=== PATIENT | male | born 1955 | race Caucasian/White ===

== ENCOUNTER 2018-06-12 00:41 | Outpatient (CLI) | payer MEDICAID, SELFPAY ==
--- NOTE | 2018-06-12 10:05 | DI.RAD_ITS ---
SYMPTOM/DIAGNOSIS: ASTHMA, J45.909 PA AND LATERAL CHEST: Comparison is made with 02/22/14. The heart is normal in size. The lungs are clear. The mediastinal structures and pleura appear intact. CONCLUSION: Normal chest.
== END 2018-06-12 01:01 ==
PROVIDERS: PCP Naturopath; Visit Provider Internal Medicine
DX: J45.909 Unspecified asthma, uncomplicated (principal)
CPT/HCPCS: 71046

== ENCOUNTER 2018-06-22 01:35 | Outpatient (CLI) | payer MEDICAID, SELFPAY ==
--- NOTE | 2018-06-22 10:52 | DI.CT_ITS ---
SYMPTOMS/DIAGNOSIS: CHRONIC OBSTRUCTIVE LUNG DISEASE, J44.[address]: The study was carried out without contrast enhancement. There is no evidence of a mass or infiltrate or pleural effusion. The heart is not enlarged. There is no pericardial effusion. Allowing for the absence of contrast material, there is no evidence of hilar or mediastinal adenopathy. There are minimal atherosclerotic changes involving the aorta without evidence of an aneurysm. Degenerative bony changes are most prominent in the upper and mid dorsal spine. SUMMARY: Essentially unremarkable noncontrast enhanced chest CT.
== END 2018-06-22 01:55 ==
PROVIDERS: PCP Naturopath; Visit Provider Internal Medicine
DX: J44.9 Chronic obstructive pulmonary disease, unspecified (principal)
CPT/HCPCS: 71250

== ENCOUNTER 2018-08-07 06:25 | Emergency (ER) | payer MEDICAID, SELFPAY ==
[2018-08-07] VITALS (71 sets, daily range): BP systolic 95–145; BP diastolic 34–92; PULSE 88–126; RESP 1–30; TEMP 36.7; O2SAT 87–100
--- NOTE | 2018-08-07 06:19 | W.ED.GENAD ---
Discharge Plan Disposition Patient Disposition: STILL A PATIENT Discharge Details Chief Complaint: SOB Reason For Visit: MOISES Primary Care Provider: Sabina Patel ED Provider: Randall Marte Home Meds and New Rx's Prescriptions: No Action albuterol sulfate 0.63 MG/3 ML solution for nebulization 0.63 inh Inhalation PRN PRNRF: 0 activated charcoal (bulk) 1 GM powder 1 gm PO DAILY RF: 0 Celery Seed 2 applic DAILY RF: 0 Trisalts 1 DAILY RF: 0 Urea Blend Capsules 2 cap PO BID RF: 0 Medical Decision Making This is a pleasant 63-year-old male who presents with a very atypical history. Patient had gasping respirations at home, he was given epinephrine by his . EMS got there and gave him Narcan and assisted with respirations, eventually the patient came around with a sudden gasp, and came back to a very normal mental status. He had some initial wheezes then, and received Solu-Medrol and duo nebs. Currently patient is asymptomatic and states that he feels fine, and he denies any headache fever chills neck pain or confusion. He is a and O x4. He does complain of pain in his right knee and left toe she states is consistent with his gout which she has been dealing with for the last 2 weeks. Physical exam demonstrates no other significant abnormalities but does demonstrate some mild to moderate tachycardia. Denies PE risk factors such as recent long car rides, immobilization, recent surgery, prior history of DVT or PE, family history of PE or DVT, morbid obesity, exogenous estrogen and smoking, hemoptysis, history of cancer. The patient did take 2 Percocets, as well as a pill of unknown contents from one his friends last night. The patient's symptoms are very odd and atypical. Seems that Narcan certainly did change his symptomatology initially. With the patient's current tachycardia we will evaluate for dehydration, versus PE. We will rehydrate, control his pain for his gout, evaluate for any other acute process. EKG 6: 47 Rate 121, MI 136, QTc 462, QRS 92, sinus tachycardia, no significant ST elevations or depressions, no T wave inversions, no significant Q waves 6:56 AM Patient was offered acetaminophen and Toradol for his gout pain, however he is refusing this at this time. 8:06 AM Patient's d-dimer is notably elevated, we did order a CT scan with contrast to evaluate for PE however the patient actively refused the IV contrast. Patient does not want any contrast of any sort as he states there have been thousands of lawsuits, and I do not want that poison in my body. I made it extremely clear to the patient that he will not be receiving a complete workup without this, and there is a very good chance we could be missing a life-threatening pathology with a lack of contrast. Patient states that he clearly understands that and states if I have to from a blood clot, that is fine. I feel that blood clot is less likely with lack of hypoxemia, or chest pain, however with his elevated d-dimer I feel that it is reasonable to rule out. Additionally while the patient was down for CT scan, he did refuse all x-rays of his extremities. Patient will not tell us why he is refused. Of note the patient's laboratory workup has partially returned and he demonstrates a notably elevated white count of 19, with a mild left shift, but no evidence of bandemia. Electrolytes are otherwise normal. Uric acid is slightly elevated, troponin and EKG are benign. Patient continues to demonstrate no signs or symptoms concerning for meningitis. Patient demonstrates good movement of cervical neck. There is no nuchal rigidity, no nuchal tenderness. Patient is able to flex the neck without any difficulty or significant pain. Negative Kernig's and Brudzinski sign. We are still awaiting CT results but I did not see any signs of significant pneumonia. He has no other associated pain in his abdomen. We will get a urinalysis to evaluate for signs of urinary tract infection. I did go and reevaluate the patient's tender areas for his gout including his left foot, right knee, and right elbow which does have a notable bursa. Although the areas are minimally swollen, there is no redness, no significant warmth, and no signs that at this time would clinically suggest a septic joint. The patient is afebrile here. Patient's clinical picture is very odd and atypical. May be a combination of na?ve opiate use with his unknown medication that he took from his friend, compounded by dehydration. Patient does look notably dehydrated when evaluating his lips and tongue. Infectious etiology is potential, however I do feel that it is clinically unlikely on my current clinical exam, especially in conjunction with no evidence of fever. We will add a lactate and an ESR and CRP. The patient is continuing to refuse any pain medications at this time. Patient will be signed out to my colleague Dr. Arora pending further laboratory workup, and imaging results. HPI General Date/Time Provider Initiated Documentation: 08/07/18 06:34. HPI Narrative: This is-year-old 64-year-old male with a past medical history of asthma, anxiety, and gout, who presents today for evaluation of respiratory distress. Per patient family and EMS the patient's significant other noticed in bed that he was having agonal breathing, she called 911, when EMS arrived the patient's saturations were in the 50s, prior to EMS arrival the patient significant other had given him an EpiPen is concerned that it was an allergic reaction. No significant change was noted after this. EMS did assist with ventilations, patient's saturations returned towards normal, he was given intranasal Narcan and roughly 10 minutes later with a vigorous inhaled he had a complete return of normal mental status, as well as normal respirations. EMS noticed some wheezes on exam after this, gave him Solu-Medrol and 2 breathing treatments. Oxygen saturations remained normal at this point. After this the patient stated that he felt fine, and had no additional complaints. He was brought to the ER for further evaluation. Patient does admit to 2 weeks of right knee pain and left foot pain. He states that it is clinically consistent with his chronic gout. He has been taking activated charcoal, and herbal supplements for improvement. Of note he did take 2 Percocets, and an unknown pill from 1 of his friends that was supposed to help with gout, last night. Currently the patient denies any fevers, chills, cough, chest pain, shortness of breath, numbness, tingling, weakness. He states that he feels fine. He denies taking any heroin, any IV or illicit drug use, or other complaints. He denies any recent surgery, or pertinent family history. He has no other complaints at this time. Related Data Home Medications Medication Instructions Recorded Confirmed albuterol sulfate 0.63 inh INHALATION PRN PRN 12/10/16 08/07/18 Celery Seed 2 applic DAILY 08/03/17 08/07/18 Trisalts 1 DAILY 08/03/17 Urea Blend Capsules 2 cap PO BID 08/03/17 08/07/18 activated charcoal (bulk) 1 gm PO DAILY 08/03/17 08/07/18 Allergies Allergy/AdvReac Type Severity Reaction Status Date / Time No Known Allergies Allergy Unverified 08/07/18 06:40 Review of Systems Review of Systems All systems reviewed & are unremarkable except as noted in HPI and below PFSH Social History Smoking/Tobacco Use Status: Never Social History Smoking/Tobacco Use Status: Never Exam Narrative Exam Narrative: 1.Const: Well-nourished, Well-developed, appearing stated age 2.Eyes: PERRL, no conjunctival injection, and symmetrical lids. 3.ENT: Atraumatic external nose and ears. Moist MM. Neck: Symmetric, trachea midline, No thyromegaly. Patient demonstrates good movement of cervical neck. There is no nuchal rigidity, no nuchal tenderness. Patient is able to flex the neck without any difficulty or significant pain. Negative Kernig's and Brudzinski sign. 4.CVS: +S1/S2, No murmurs or gallops. Peripheral pulses 2+ and equal in all extremities. Brisk capillary refill in all extremities. 5.RESP: Unlabored respiratory effort. Clear to auscultation bilaterally. No wheezes rales or rhonchi 6.GI: Soft, Nontender/Nondistended, No hepatosplenomegaly. No guarding or rebound. 7.MSK: Normocephalic/Atraumatic, Extremities w/o deformity. No cyanosis or clubbing, Normal movement of all extremities. Mild tenderness in the patient's right knee, minimal swelling, no erythema or redness. No significant crepitus or signs of tophaceous gout. Mild tenderness by the patient's left great toe, minimal tenderness, no erythema, or significant swelling. Dorsalis pedis and posterior tibial pulses +2 bilaterally. Radial pulses +2 bilaterally. 8.Skin: Warm, Dry. No rashes or lesions. 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 Sensation grossly intact, no focal neurologic deficits. All 6 cardinal planes of vision are fully intact. No evidence of rotatory or vertical nystagmus. The patient demonstrated a normal kkjqnq-wluo-ndcqle, good dexterity. There was no evidence of dysdiadochokinesia. Patient was able to ambulate without difficulty. There was no wide-based gait. Romberg, and skwo-qn-olph are both normal on testing. Sensation was intact bilaterally as well as muscle strength bilaterally for all extremities. Patient was able to verbalize butter cup with no slurring, or miss pronunciation. 10.Psych: (AAO) x3. Appropriate mood and affect
--- NOTE | 2018-08-07 06:36 | DI.CT_ITS ---
SYMPTOMS/DIAGNOSIS: ALTERED MENTAL STATUS, RESPIRATORY DISTRESS, TACHY CT BRAIN: A noncontrast cranial CT was performed. No priors for comparison. The ventricular system is normal in appearance. There is no evidence of an intracranial mass lesion. There is no evidence of a subdural or epidural hematoma. No focal areas of decreased attenuation are seen. IMPRESSION: Normal noncontrast Cranial CT. CT CHEST: Noncontrast CT scan of the chest was performed. Lack of IV contrast limits evaluation of the vascular structures. The thoracic aorta is of normal caliber. The heart size is within normal limits. No significant pericardial effusion is seen. There are mild coronary artery calcifications. No significant thoracic adenopathy, pleural effusion or pneumothorax is identified. No infiltrates are seen. The tracheobronchial tree is unremarkable. The upper abdominal images are unremarkable. Degenerative changes are seen in the spine. IMPRESSION: No acute abnormality on this noncontrast CT scan of the chest.
[2018-08-07 06:53] LABS: Absolute Basophil Count 0.04 k/cumm (0.0-0.2); Absolute Eosinophil Count 0.23 k/cumm (0.0-0.7); Absolute Lymphocyte Count 1.61 k/cumm (1.2-3.4); Absolute Monocyte Count 0.94 k/cumm (0.11-0.7); Absolute Neutrophil Count 16.66 k/cumm (1.2-6.7); Basophils % 0.2; Eosinophils % 1.2; HGB 12.6 g/dL (13.5-17.5); Immature Grans % 0.5; Lymphocytes % 8.2; Mean Corp. HGB Concentration 32.3 g/dL (32.0-36.0); Mean Corpuscular Hemoglobin 31.3 pg (27.0-33.0); Mean Corpuscular Volume 96.8 fL (80-95); Mean Platelet Volume 9.1 fL (8.0-11.0); Monocytes % 4.8; Neutrophils % 85.1; Platelet Count 683 x1000/uL (130-400); RBC 4.03 m/cumm (4.50-6.00); RBC Distribution Width 12.4 % (11.8-14.1); White Blood Cell Count 19.58 k/cumm (4.4-10.8)
[2018-08-07] MEDS: Normal Saline 1,000 ML 1000 ML IV ×3 (06:55→11:20)
[2018-08-07 07:15] LABS: ALT 23 U/L (12-78); AST 20 U/L (15-37); Albumin 2.7 g/dL (3.4-5.0); Alkaline Phosphatase 55 U/L (46-116); Anion Gap 12.6 mmol/L (3-11); BUN 14 mg/dL (7-18); Bilirubin, Total 0.3 mg/dL (0.2-1.0); CO2 26.4 mmol/L (21.0-32.0); CREATININE 1.19 mg/dL (0.70-1.30); Calcium 8.8 mg/dL (8.5-10.1); Chloride 98 mmol/L (98-107); Glucose 219 mg/dL (70-100); Potassium 4.1 mmol/L (3.5-5.1); Sodium 137 mmol/L (136-145); Total Protein 7.3 g/dL (6.4-8.2); Uric Acid 9.9 mg/dL (3.5-7.2)
[2018-08-07 07:17] LABS: Troponin I < 0.02 ng/mL (0.00-0.06)
[2018-08-07 07:23] LABS: D-Dimer 6257 ng/mlFEU (<500)
--- NOTE | 2018-08-07 07:38 | NUR.NOTE ---
MD Marte at the bedside as patient is refusing IV contrast, MD Marte was very clear with patient regarding his elevated DDimer and the risks associated with not diagnosing and treating a PE including .
--- NOTE | 2018-08-07 07:41 | NUR.NOTE ---
Pt. is currently in CT scan, agreeable to non-con testing.
--- NOTE | 2018-08-07 07:54 | NUR.NOTE ---
MD Marte is at the bedside, updating patient on elevated WBC, pt. placed on surveillance monitor.
--- NOTE | 2018-08-07 08:05 | DI.VRAD_ITS ---
EXAM: CT Head Without Intravenous Contrast EXAM DATE/TIME: 08/07/2018 6:40 AM CLINICAL HISTORY: 63 years old, male; Pain; Additional info: Altered mental status TECHNIQUE: Axial computed tomography images of the head/brain without intravenous contrast. Coronal and sagittal reformatted images were created and reviewed. COMPARISON: No relevant prior studies available. FINDINGS: There is no intracranial hemorrhage. There is no mass effect or midline shift. The ventricles and sulci are appropriate in size and configuration for age. Normal heller white differentiation. The calvarium is intact. IMPRESSION: No acute intracranial findings. Dictated and Authenticated by: Daquan Bradley MD. Ordering:RAMONA OCAMPO MD
--- NOTE | 2018-08-07 08:09 | DI.VRAD_ITS ---
EXAM: CT Chest Without Contrast EXAM DATE/TIME: 08/07/2018 7:25 AM CLINICAL HISTORY: 63 years old, male; Pain; Other: Altered menal status; Additional info: Altered mental status TECHNIQUE: Axial computed tomography images of the chest without intravenous contrast. Coronal and sagittal reformatted images were created and reviewed. COMPARISON: CT CHEST WO 06/22/2018 10:39 AM FINDINGS: No airspace consolidation, pleural effusion or pneumothorax. The thoracic aorta is normal in caliber. The visualized abdominal structures are unremarkable. No fracture. IMPRESSION: No acute findings. Dictated and Authenticated by: Daquan Bradley MD. Ordering:RAMONA OCAMPO MD
[2018-08-07 08:13] LABS: Bilirubin Negative (Negative); Blood Negative (Negative); Clarity Clear; Glucose Negative (Negative); Ketones 15 mg/dL (Negative); Leukocyte Esterase Negative (Negative); Nitrite Negative (Negative); Urobilinogen 0.2 EU/dL (Up TO 0.2)
[2018-08-07 08:23] LABS: Bacteria Rare HPF (Negative); Crystals Negative HPF (Negative); Epithelial Cells Rare HPF (Negative); Mucus Negative (Negative); RBC Negative (0-2); WBC 0-2 HPF (0-5)
[2018-08-07 08:24] LABS: C & S Indicated? No; Casts 0-2 Fine Granular LPF (Negative)
--- NOTE | 2018-08-07 08:24 | NUR.NOTE ---
pt. states knee pain is significant better, placed on 2L NC, pt. desats to low 80s when he sleeps. pt. admits to sleep apnea.
[2018-08-07 08:31] LABS: C-Reactive Protein 9.76 mg/dL (0.0-0.3)
[2018-08-07 09:02] LABS: ESR 103 MM/HR (1-20)
[2018-08-07 09:10] LABS: Lactate-non-spesis 1.1 mmol/L (0.6-1.4)
--- NOTE | 2018-08-07 10:12 | NUR.NOTE ---
Pt. is resting on and off, easily aroused, continues to state that his knee feels better, tachycardia improved after 2nd L IVF to high 80s from low 100s. VSS otherwise. Call blackburn in reach, will monitor.
[2018-08-07 10:45] LABS: Troponin I 0.02 ng/mL (0.00-0.06)
--- NOTE | 2018-08-07 11:01 | NUR.NOTE ---
MD Arora is at the bedside.
--- NOTE | 2018-08-07 11:43 | NUR.NOTE ---
Phlebotomy is at the bedside drawing cultures.
== END 2018-08-07 14:00 | disposition left against medical advice (07) ==
PROVIDERS: Student in an Organized Health Care Education/Training Program; Emergency Provider Student in an Organized Health Care Education/Training Program; PCP Naturopath
DX: R09.2 Respiratory arrest (principal); R00.0 Tachycardia, unspecified; D72.829 Elevated white blood cell count, unspecified; M70.32 Other bursitis of elbow, left elbow; M25.50 Pain in unspecified joint; G89.29 Other chronic pain; M10.9 Gout, unspecified; R79.1 Abnormal coagulation profile; Z53.29 Procedure and treatment not carried out because of patient's decision for other reasons
CPT/HCPCS: 36410; 36415; 71250; 80053; 85652; 87040; 93005; 96361; 99285; 70450; 81003; 81015; 83605; 84484; 84550; 85025; 85379; 86140; 93010; 99284; J1885

== ENCOUNTER 2018-10-06 10:22 | Emergency (ER) | payer MEDICAID, SELFPAY ==
[2018-10-06 10:27] VITALS: BP 164/95; PULSE 96; RESP 18; TEMP 36.8; O2SAT 95
--- NOTE | 2018-10-06 10:37 | ED.GENADUL_ITS ---
Discharge Plan Disposition Patient Disposition: HOME Condition: Improving Discharge Details Chief Complaint: RespSymp Clinical Impression: Acute bronchitis with bronchospasm Primary Care Provider: Sabina Patel ED Provider: Dmitry Funes Home Meds and New Rx's Prescriptions: New prednisone 20 mg tablet 60 mg PO DAILY 5 Days Qty: 15 RF: 0 azithromycin 250 mg tablet See Rx Instructions .ROUTE .COMPLEX Qty: 6 RF: 0 No Action albuterol sulfate 0.63 MG/3 ML solution for nebulization 0.63 inh Inhalation PRN PRNRF: 0 activated charcoal (bulk) 1 GM powder 1 gm PO DAILY RF: 0 Celery Seed 2 applic DAILY RF: 0 Trisalts 1 DAILY RF: 0 Urea Blend Capsules 2 cap PO BID RF: 0 prednisone 20 mg Tablet 60 mg PO ONCE RF: 0 Discharge Instructions Instructions: Acute Bronchitis (ED) Additional Instructions: Take medications as prescribed. Follow-up with regular doctor if not improving in 5 days time. Return to the emergency department for any acute concerns Medical Decision Making 63-year-old male with a history of reactive airway disease presents from home with 9-10 days of cough, congestion, production of sputum and wheezing that is been minimally improved with his home inhaler. He is previously been prescribed prednisone and took 60 mg by mouth at 3:00 this morning. He arrives with a temp of 36.8, pulse 96, blood pressure 164/95, 95% sat on room air and speaking in full sentences. Diagnosis includes COPD exacerbation, bronchitis, pneumonia, must exclude underlying fluid overload. Patient given inhaled DuoNeb, referred for chest x-ray, EKG, laboratory testing. Patient's diagnostic studies are reassuring. His white blood cell count of 10, discrete anion gap of 12, otherwise reassuring CBC and chemistries with a negative troponin and normal BNP. Chest x-ray without focal infiltrate. Consistent with bronchitis and COPD exacerbation. Will treat with abx, steroid burst. Lab Data Lab results reviewed: Yes I reviewed the patient's lab results. Laboratory Results - last 24 hr 10/06/18 10/06/18 10:54 10:54 WBC 10.53 RBC 4.90 Hgb 15.2 Hct 46.6 MCV 95.1 H MCH 31.0 MCHC 32.6 RDW 15.5 H Plt Count 295 MPV 9.7 Immature Gran % 0.4 Neutrophils % 88.6 Lymphocytes % 6.5 Monocytes % 4.3 Eosinophils % 0.0 Basophils % 0.2 Absolute Neutrophils 9.34 H Absolute Lymphocytes 0.68 L Absolute Monocytes 0.45 Absolute Eosinophils 0.00 Absolute Basophils 0.02 Sodium 140 Potassium 4.3 Chloride 102 Carbon Dioxide 25.7 Anion Gap 12.3 H BUN 11 Creatinine 1.11 Estimated GFR/1.73 m2 >= 60.00 Glucose 157 H Calcium 9.2 Magnesium 2.2 Total Bilirubin 0.5 AST 16 ALT 30 Alkaline Phosphatase 67 Troponin I < 0.02 NT-Pro-B Natriuret Pep 72 Total Protein 7.9 Albumin 3.8 ECG Data Attestation: I personally reviewed and interpreted this ECG (s) as follows: Interpretation: Normal sinus rhythm, the rate is 79, the QRS is narrow, there is no ST segment elevation HPI General Mode of arrival: ambulatory . Date/Time Provider Initiated Documentation: 10/06/18 10:24 . Limitations to Documentation: no limitations . Information obtained by: patient and family . History of Present Illness 63 year old M presents to the emergency department with the chief complaint of Cough, congestion, shortness of breath over 9 days time, described as moderate, Quality is described as aching, Patient started experiencing this day(s) and it has been constant. No relieving factors improve symptom(s), No exacerbating factors reported . Patient notes cough and shortness of breath. Patient did receive the following treatments prior to arrival, other (Prednisone 60 mg at 0300 and breathing txs) Related Data Home Medications Medication Instructions Recorded Confirmed albuterol sulfate 0.63 inh INHALATION PRN PRN 12/10/16 10/06/18 Celery Seed 2 applic DAILY 08/03/17 08/07/18 Trisalts 1 DAILY 08/03/17 Urea Blend Capsules 2 cap PO BID 08/03/17 08/07/18 activated charcoal (bulk) 1 gm PO DAILY 08/03/17 08/07/18 azithromycin See Rx Instructions .ROUTE 10/06/18 .COMPLEX #6 tab prednisone 60 mg PO DAILY 5 Days #15 tab 10/06/18 prednisone 60 mg PO ONCE 10/06/18 10/06/18 Previous Rx's Medication Instructions Recorded azithromycin See Rx Instructions .ROUTE 10/06/18 .COMPLEX #6 tab prednisone 60 mg PO DAILY 5 Days #15 tab 10/06/18 Allergies Allergy/AdvReac Type Severity Reaction Status Date / Time No Known Allergies Allergy Unverified 10/06/18 10:33 General Stated Complaint: RespSymp ALLY: 3 Review of Systems Review of Systems 8 systems reviewed and otherwise neg PFSH Social History Smoking/Tobacco Use Status: Never Exam Narrative Exam Narrative: GEN: awake, alert, oriented 3. Pleasant, well groomed, interactive. HEAD: Normocephalic, atraumatic ENT: Mucous membranes moist, oropharynx unremarkable, External ear exam unremarkable EYES: PERRL, EOMI NECK: Full ROM, no MARCUS, no menigismus CHEST/RESP: Nontender, bilateral slight inspiratory and end expiratory wheeze present CARDIOVASCULAR: RRR, no murmur, rub raffaele. 2+ Rad pulse bilateral ABDOMEN: Soft, nontender, no mass. +Bowel sounds EXT: Full ROM, no edema, no rash Neuro: Grossly normal neurologic exam, conversant, interactive. Psych: Speech fluent, thoughts congruent, affect normal Course Vital Signs Temperature 36.8 C 10/06/18 10:27 Pulse 96 H 10/06/18 10:27 Respiratory Rate 18 10/06/18 10:27 Blood Pressure 164/95 H 10/06/18 10:27 Pulse Oximetry 95 10/06/18 10:27 Temperature 36.8 C 10/06/18 10:27 Temperature Source Temporal Artery Scan 10/06/18 10:27 Pulse 96 H 10/06/18 10:27 Respiratory Rate 18 10/06/18 10:27 Respiratory Effort 10/06/18 10:32 Respiratory Depth Normal 10/06/18 10:32 Blood Pressure 164/95 H 10/06/18 10:27 Blood Pressure Position Sitting 10/06/18 10:27 Pulse Oximetry 95 10/06/18 10:27 Pain Level 0 10/06/18 10:27
[2018-10-06 10:44] VITALS: RESP 4
[2018-10-06] MEDS: Albuterol/Ipratropium 3 ML UPD VIAL UPD (10:44)
[2018-10-06 11:03] LABS: Abs Immature Grans 0.04 k/cumm (0.0-0.09); Absolute Basophil Count 0.02 k/cumm (0.0-0.2); Absolute Lymphocyte Count 0.68 k/cumm (1.2-3.4); Absolute Monocyte Count 0.45 k/cumm (0.11-0.7); Absolute Neutrophil Count 9.34 k/cumm (1.2-6.7); Basophils % 0.2; HCT 46.6 % (40.0-50.0); HGB 15.2 g/dL (13.5-17.5); Immature Grans % 0.4; Lymphocytes % 6.5; Mean Corp. HGB Concentration 32.6 g/dL (32.0-36.0); Mean Corpuscular Volume 95.1 fL (80-95); Mean Platelet Volume 9.7 fL (8.0-11.0); Monocytes % 4.3; Neutrophils % 88.6; Platelet Count 295 x1000/uL (130-400); RBC Distribution Width 15.5 % (11.8-14.1); White Blood Cell Count 10.53 k/cumm (4.4-10.8)
--- NOTE | 2018-10-06 11:18 | DI.RAD_ITS ---
SYMPTOM/DIAGNOSIS: COUGH PA AND LATERAL CHEST: 10/06/18 The heart is not enlarged. The lungs are generally clear. There is slight thickening of what appears to be the major fissure on the right. No pleural effusion seen in posterior sulcus. CONCLUSION: Slight prominence of inter-lobar fissure on the right which is of uncertain significance. No gross pleural effusion or consolidation.
[2018-10-06 11:26] LABS: ALT 30 U/L (12-78); AST 16 U/L (15-37); Albumin 3.8 g/dL (3.4-5.0); Alkaline Phosphatase 67 U/L (46-116); Anion Gap 12.3 mmol/L (3-11); BUN 11 mg/dL (7-18); Bilirubin, Total 0.5 mg/dL (0.2-1.0); CO2 25.7 mmol/L (21.0-32.0); CREATININE 1.11 mg/dL (0.70-1.30); Calcium 9.2 mg/dL (8.5-10.1); Chloride 102 mmol/L (98-107); Glucose 157 mg/dL (70-100); Magnesium 2.2 mg/dL (1.8-2.4); NT-proBNP 72 pg/mL; Potassium 4.3 mmol/L (3.5-5.1); Sodium 140 mmol/L (136-145); Total Protein 7.9 g/dL (6.4-8.2)
[2018-10-06 11:31] LABS: Troponin I < 0.02 ng/mL (0.00-0.06)
[2018-10-06 12:17] VITALS: PULSE 74; RESP 18; TEMP 36.6; O2SAT 94
== END 2018-10-06 12:17 | disposition home or self-care (01) ==
PROVIDERS: Emergency Provider Emergency Medicine; PCP Naturopath
DX: J44.0 Chronic obstructive pulmonary disease with (acute) lower respiratory infection (principal); J20.9 Acute bronchitis, unspecified; J44.1 Chronic obstructive pulmonary disease with (acute) exacerbation
CPT/HCPCS: 36415; 80053; 93005; 94640; 99284; 71046; 83735; 83880; 84484; 85025; 93010; J7620

== ENCOUNTER 2018-10-31 03:18 | Emergency (ER) | payer MEDICAID, SELFPAY ==
[2018-10-31 03:21] VITALS: BP 144/73; PULSE 106; RESP 20; TEMP 36.4; O2SAT 98
[2018-10-31 03:28] VITALS: RESP 24
--- NOTE | 2018-10-31 03:44 | W.ED.GENAD ---
Discharge Plan Disposition Patient Disposition: HOME Condition: Good Discharge Details Chief Complaint: SOB Clinical Impression: Cough, Asthma exacerbation Primary Care Provider: Sabina Patel ED Provider: Randall Marte Home Meds and New Rx's Prescriptions: New prednisone 50 MG tablet 50 mg PO DAILY Qty: 5 RF: 0 amoxicillin-pot clavulanate [Augmentin] 875-125 mg tablet 1 tab PO BID Qty: 14 RF: 0 No Action albuterol sulfate 0.63 MG/3 ML solution for nebulization 0.63 inh Inhalation PRN PRNRF: 0 activated charcoal (bulk) 1 GM powder 1 gm PO DAILY PRNRF: 0 Celery Seed 2 applic DAILY RF: 0 Trisalts 1 DAILY RF: 0 Urea Blend Capsules 2 cap PO BID RF: 0 prednisone 20 mg Tablet 60 mg PO ONCE RF: 0 albuterol sulfate [ProAir HFA] 90 mcg/actuation Hfa Aerosol Inhaler 2 puff Inhalation PRNRF: 0 Discharge Instructions Instructions: Asthma (ED), Acute Cough (ED) Additional Instructions: Please take the prednisone as directed. Do not have any pertinent improvement of your symptoms in the next 48 hours please take the antibiotic. If you notice any worsening of your symptoms, or any new symptoms such as vomiting, diarrhea, fever, chills, shortness of breath, chest pain, numbness, weakness, or fainting , please return immediately to the emergency department for reevaluation. Please follow up with your primary care provider as soon as possible for reassessment and reevaluation. As always, it was a pleasure participating in your medical care today. Referrals: Sabina Patel [Primary Care Provider] - Medical Decision Making This is a 63-year-old male with past medical history of asthma, gout and anxiety who presents today for evaluation of cough and difficulty breathing. It started roughly 30-40 minutes ago. He awoke from sleep feeling like he had aspirated some acid, and began coughing. He took a breathing and 30 mg of his home prednisone that he had saved from a previous visit. He had notable improvement of his symptoms after this. Although the patient's symptoms were improving he taken to the ER for further evaluation. He is states that this is happened multiple times in the past, he just needs some breathing treatments. The patient is currently refusing any x-ray imaging, or additional lab work stating told again to show what it showed last time. I did discuss with the patient the risks and benefits of holding off on labs or imaging, and he understands these risks. Of note on review of my prior visit with the patient he was also very resistant to imaging and laboratory workup at that time as well. Respecting the patient's wishes with him being fully aware and understanding of the risks we will proceed only with a EKG, and breathing treatments at this time. We will give an additional 30 mg of prednisone, and reassess. With reassuring vital signs with no evidence of hypoxemia, tachypnea, or respiratory distress I see no signs of a clinically life-threatening emergency at this time. Differential includes mild asthma exacerbation more likely, questionable aspiration pneumonitis less likely. The patient is able to speak clearly. There is no demonstration of any slurring of speech. There is evidence of clear decision making capacity. Patient is able to ambulate well without any difficulty. There are no signs of ataxia or stumbling motions. 4:30 AM Patient's EKG shows no concerning ST elevations or other significant abnormalities. After breathing treatments reevaluation of his lungs demonstrates a notable improvement in his wheezes, and his wheezes have now completely resolved. The patient still shows no signs of respiratory distress, significant tachypnea or hypoxemia. They do feel that his symptoms are more likely from a mild asthma exacerbation, however since he is refusing x-ray I am uncertain if there is an aspiration component, although I feel notable aspiration is unlikely. May be a small degree of aspiration pneumonitis. No evidence of hypoxemia I see no indication for hospital admission. With his notable improvement the patient does feel ready to go home, and I do feel that this is reasonable. We continue to offer her laboratory and imaging however this was unwanted at this time. We will recommend the patient continue his breathing treatments at home, will give a prescription for steroids for his asthma, and a prescription for Augmentin for unlikely aspiration pneumonia. Recommend that he hold off for the next 24-48 hours and if he is not improving in his symptomatology that he begins taking the antibiotic. I have extensively reviewed the treatment plan and discharge instructions with the patient and their family. I have addressed all patient concerns at this time. The patient and family was made aware of what symptoms to monitor for that would warrant a return to the emergency department. Discussed the plan with the patient and family, they demonstrate verbal understanding and agreement with our assessment and plan at this time. 3: 47 Rate 99, MI 142, QTc 449, QRS 94, sinus rhythm, no significant ST elevations or depressions, no Q waves except for a questionable Q waves in V1 and V2. Inverted T wave in V1. Previous EKG from 10/06/18 demonstrates consistent finding HPI General Date/Time Provider Initiated Documentation: 10/31/18 03:33. HPI Narrative: This is a 63-year-old male with past medical history of asthma, anxiety, and gout, who presents today for evaluation of difficulty breathing. Patient states that he woke up this evening and felt like he may have choked on some acid reflux. After this he was notably short of breath, felt like his lungs were tight. He has been coughing ever since, his cough is been productive with clear and yellow sputum. He denies any vomiting, chest pain, chest tightness, arm pain, neck pain or shoulder pain. He denies any abdominal pain or back pain. He did take 30 mg of prednisone prior to coming in, and also took a home breathing treatment. He had notable improvement with both of these. Denies PE risk factors such as recent long car rides, immobilization, recent surgery, prior history of DVT or PE, family history of PE or DVT, morbid obesity, exogenous estrogen and smoking, hemoptysis, history of cancer. Patient denies any other complaints at this time. Of note he was treated for bronchitis earlier this month. Patient denies any symptoms of fever, chills. He has no other complaints at this time. Related Data Home Medications Medication Instructions Recorded Confirmed albuterol sulfate 0.63 inh INHALATION PRN PRN 12/10/16 10/06/18 Celery Seed 2 applic DAILY 08/03/17 08/07/18 Trisalts 1 DAILY 08/03/17 Urea Blend Capsules 2 cap PO BID 08/03/17 08/07/18 activated charcoal (bulk) 1 gm PO DAILY PRN 08/03/17 08/07/18 prednisone 60 mg PO ONCE 10/06/18 10/06/18 albuterol sulfate [ProAir HFA] 2 puff INHALATION PRN 10/31/18 amoxicillin-pot clavulanate 1 tab PO BID #14 tab 10/31/18 [Augmentin] prednisone 50 mg PO DAILY #5 tab 10/31/18 Previous Rx's Medication Instructions Recorded amoxicillin-pot clavulanate 1 tab PO BID #14 tab 10/31/18 [Augmentin] prednisone 50 mg PO DAILY #5 tab 10/31/18 Allergies Allergy/AdvReac Type Severity Reaction Status Date / Time No Known Allergies Allergy Unverified 10/31/18 03:26 General Stated Complaint: SOB ALLY: 3 Review of Systems Review of Systems All systems reviewed & are unremarkable except as noted in HPI and below PFSH Social History Smoking and Tabacco status: Never Exam Narrative Exam Narrative: 1.Const: Well-nourished, Well-developed, appearing stated age 2.Eyes: PERRL, no conjunctival injection, and symmetrical lids. 3.ENT: Atraumatic external nose and ears. Moist MM. Neck: Symmetric, trachea midline, No thyromegaly. 4.CVS: +S1/S2, No murmurs or gallops. Peripheral pulses 2+ and equal in all extremities. Brisk capillary refill in all extremities. Radial pulses +2 bilaterally. 5.RESP: Unlabored respiratory effort. Notable wheezes bilaterally. No significant crackles. No significant rhonchi 6.GI: Soft, Nontender/Nondistended, No hepatosplenomegaly. No guarding or rebound. 7.MSK: Normocephalic/Atraumatic, Extremities w/o deformity or ttp No cyanosis or clubbing, Normal movement of all extremities 8.Skin: Warm, Dry. No rashes or lesions. 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 Sensation grossly intact, no focal neurologic deficits. 10.Psych: (AAO) x3. Appropriate mood and affect Course Vital Signs Temperature 36.4 C 10/31/18 03:21 Pulse 106 H 10/31/18 03:21 Respiratory Rate 20 10/31/18 03:21 Blood Pressure 144/73 H 10/31/18 03:21 Pulse Oximetry 98 10/31/18 03:21 Temperature 36.4 C 10/31/18 03:21 Temperature Source Oral 10/31/18 03:21 Pulse 106 H 10/31/18 03:21 Respiratory Rate 24 10/31/18 03:28 Respiratory Effort 10/31/18 03:28 Blood Pressure 144/73 H 10/31/18 03:21 Pulse Oximetry 98 10/31/18 03:21 Pain Level 10 10/31/18 03:21
[2018-10-31] MEDS: predniSONE 20 MG TAB (03:48)
[2018-10-31] MEDS: predniSONE 10 MG TAB (03:48)
[2018-10-31 03:49] VITALS: RESP 4
[2018-10-31] MEDS: Albuterol/Ipratropium 3 ML UPD VIAL (03:49)
[2018-10-31 04:12] VITALS: RESP 4
[2018-10-31] MEDS: Albuterol/Ipratropium 3 ML UPD VIAL 6 ML UPD (04:12)
[2018-10-31 04:54] VITALS: BP 139/85; PULSE 112; RESP 18; O2SAT 96
== END 2018-10-31 04:59 | disposition home or self-care (01) ==
LOC: ER 05:00
PROVIDERS: Emergency Provider Student in an Organized Health Care Education/Training Program; PCP Naturopath
DX: R05 Cough (principal); J45.901 Unspecified asthma with (acute) exacerbation
CPT/HCPCS: 93005; 94640; 99284; 93010; J7512; J7620

== ENCOUNTER 2018-12-12 10:14 | Outpatient (CLI) | payer MEDICAID, SELFPAY ==
[2018-12-22 10:22] LABS: C4a Level by RIA 1186 ng/mL (0-2830)
== END 2018-12-12 10:34 ==
PROVIDERS: PCP Naturopath; Visit Provider Naturopath
DX: Z77.120 Contact with and (suspected) exposure to mold (toxic) (principal)
CPT/HCPCS: 36415; 86160

== ENCOUNTER 2019-09-12 12:24 | Emergency (ER) | payer MEDICAID, SELFPAY ==
[2019-09-12] VITALS (22 sets, daily range): BP systolic 122–143; BP diastolic 68–84; PULSE 92–120; RESP 10–20; TEMP 37.3; O2SAT 94–98
--- NOTE | 2019-09-12 12:45 | ED.GENADUL_ITS ---
Discharge Plan Disposition Patient Disposition: HOME Condition: Improving Discharge Details Chief Complaint: Nk/Back Pain Clinical Impression: Spasm of muscle of lower back Primary Care Provider: Sabina Patel ED Provider: Dmitry Funes Home Meds and New Rx's Prescriptions: New methocarbamol 750 mg tablet 750 mg PO TID PRN (Reason: Pain and spasm) Qty: 20 RF: 0 oxycodone-acetaminophen [Percocet] 5-325 mg tablet 1 tab PO TID PRN (Reason: pain) Qty: 4 RF: 0 Continued albuterol sulfate 0.63 MG/3 ML solution for nebulization 0.63 inh Inhalation PRN PRNRF: 0 activated charcoal (bulk) 1 GM powder 1 gm PO DAILY PRNRF: 0 Celery Seed 2 applic DAILY RF: 0 Trisalts 1 DAILY RF: 0 Urea Blend Capsules 2 cap PO BID RF: 0 prednisone 20 mg Tablet 60 mg PO ONCE RF: 0 albuterol sulfate [ProAir HFA] 90 mcg/actuation Hfa Aerosol Inhaler 2 puff Inhalation PRNRF: 0 prednisone 50 MG tablet 50 mg PO DAILY Qty: 5 RF: 0 amoxicillin-pot clavulanate [Augmentin] 875-125 mg tablet 1 tab PO BID Qty: 14 RF: 0 Discharge Instructions Instructions: Muscle Spasm (ED) Additional Instructions: Continue liberal amounts of fluids to stay hydrated. Please remove Lidoderm patch in 12 hours time. Additional patches may purchased [id number]. He may also trial a TENS unit this available [id number] at the local pharmacy. Ibuprofen 600 to 800 mg every 8 hours, with food. Methocarbamol as needed for spasm. May use Percocet if needed for severe/breakthrough pain. Return if you develop increasing pain, abdominal pain, fever, or any other acute concerns. Medical Decision Making 64-year-old male presents from home with a twisting injury last night while getting off the toilet. He slowly developed left-sided back pain and spasm. He denied any motor weakness, no change to bowel or bladder function. He arrives afebrile but tachycardic and in distress. Exam shows normal motor and sensory f unction of the lower extremity, spasms of the lumbar region. IV access was established, patient given ketorolac and Valium. Discussed with him imaging which he wishes to defer. Patient given ketorolac, Valium, magnesium, fluid bolus with improvement, now able to move with greater ease. Discussed with him home management as well as indications to return for reevaluation. Lidoderm patch applied, I consented him for the use of opiates for severe breakthrough pain and will prescribe him methocarbamol. HPI General Mode of arrival: ambulatory . Date/Time Provider Initiated Documentation: 09/12/19 12:37 . Limitations to Documentation: no limitations . Information obtained by: patient and family . History of Present Illness 64 year old M presents to the emergency department with the chief complaint of Left lumbar pain and spasm, described as moderate, Quality is described as dull and constant, and is localized to the back and left. Patient reports no radiation. Patient started experiencing this hour(s) and it has been constant. Rest improves symptom(s), Movement worsens symptoms . Patient notes other (Denies central back pain, no weakness or tingling of the extremity, no numbness, no change to bowel or bladder function.). Related Data Home Medications Medication Instructions Recorded Confirmed albuterol sulfate 0.63 inh INHALATION PRN PRN 12/10/16 10/06/18 Celery Seed 2 applic DAILY 08/03/17 08/07/18 Trisalts 1 DAILY 08/03/17 Urea Blend Capsules 2 cap PO BID 08/03/17 08/07/18 activated charcoal (bulk) 1 gm PO DAILY PRN 08/03/17 08/07/18 prednisone 60 mg PO ONCE 10/06/18 10/06/18 albuterol sulfate [ProAir HFA] 2 puff INHALATION PRN 10/31/18 amoxicillin-pot clavulanate 1 tab PO BID #14 tab 10/31/18 [Augmentin] prednisone 50 mg PO DAILY #5 tab 10/31/18 methocarbamol 750 mg PO TID PRN #20 tab 09/12/19 oxycodone-acetaminophen [Percocet] 1 tab PO TID PRN #4 tab 09/12/19 Previous Rx's Medication Instructions Recorded amoxicillin-pot clavulanate 1 tab PO BID #14 tab 10/31/18 [Augmentin] prednisone 50 mg PO DAILY #5 tab 10/31/18 methocarbamol 750 mg PO TID PRN #20 tab 09/12/19 oxycodone-acetaminophen [Percocet] 1 tab PO TID PRN #4 tab 09/12/19 Allergies Allergy/AdvReac Type Severity Reaction Status Date / Time No Known Allergies Allergy Unverified 09/12/19 12:30 General Stated Complaint: Nk/Back Pain ALLY: 3 Review of Systems Narrative: 6 systems reviewed and otherwise negative [facility] Social History Smoking/Tobacco Use Status: Never Alcohol Intake: current Alcohol Intake frequency: 0-2 drinks per day Alcohol type: beer Drug use: Occasionally Substance use type: marijuana Do you feel safe at home: Yes Do you feel safe in your relationship?: Yes Exam Narrative Exam Narrative: GEN: awake, alert, oriented 3. Pleasant, well groomed, interactive. HEAD: Normocephalic, atraumatic ENT: Mucous membranes moist, oropharynx unremarkable, External ear exam unremarkable EYES: PERRL, EOMI NECK: Full ROM, no MARCUS, no menigismus CHEST/RESP: Nontender, clear to auscultation bilateral, no wheeze/rhonchi/rales CARDIOVASCULAR: Regular, tachycardic, no murmur, rub raffaele. 2+ Rad pulse bilateral Back: Left paraspinous muscular spasm and tenderness in the paraspinous musculature ABDOMEN: Soft, nontender, no mass. +Bowel sounds EXT: Full ROM, no edema, no rash. Sensation intact throughout including saddle distribution. Motor 5 out of 5. Neuro: Grossly normal neurologic exam, conversant, interactive. Psych: Speech fluent, thoughts congruent, affect normal Course Vital Signs Vital signs: Vital Signs Temperature 37.3 C 09/12/19 12:27 Pulse 120 H 09/12/19 12:27 Respiratory Rate 18 09/12/19 12:27 Blood Pressure 143/78 H 09/12/19 12:27 Pulse Oximetry 97 09/12/19 12:27 Temperature 37.3 C 09/12/19 12:27 Temperature Source Temporal Artery Scan 09/12/19 12:27 Pulse 120 H 09/12/19 12:27 Respiratory Rate 18 09/12/19 12:27 Respiratory Effort Non-Labored 09/12/19 12:29 Blood Pressure 143/78 H 09/12/19 12:27 Blood Pressure Position Sitting 09/12/19 12:27 Pulse Oximetry 97 09/12/19 12:27 Oxygen Delivery Method Room Air 09/12/19 12:27 Oxygen Flow Rate 0 09/12/19 12:27 Pain Level 10 09/12/19 12:27
[2019-09-12] MEDS: MAGNESIUM SULFATE 1 GM/100 ML BAG IVPB (13:11)
[2019-09-12] MEDS: Normal Saline 1,000 ML 1000 ML IV (13:15)
[2019-09-12] MEDS: diazePAM 10 MG/2 ML SYR 5 MG IVP (13:23)
[2019-09-12] MEDS: Ketorolac 15 MG/ML VIAL IVP (13:23)
[2019-09-12] MEDS: Lidocaine 5% Patch 1 PATCH TP (15:20)
== END 2019-09-12 16:12 | disposition home or self-care (01) ==
PROVIDERS: Emergency Provider Emergency Medicine; PCP Naturopath
DX: M62.830 Muscle spasm of back (principal); X50.9XXA Other and unspecified overexertion or strenuous movements or postures, initial encounter; R00.0 Tachycardia, unspecified
CPT/HCPCS: 96361; 96365; 96366; 96375; 99284; 99283; J1885; J3360; J3475

== ENCOUNTER 2020-03-26 13:11 | Emergency (ER) | payer MEDICAID, SELFPAY ==
[2020-03-26 13:18] VITALS: BP 147/79; PULSE 106; RESP 22; TEMP 37.3; O2SAT 97
--- NOTE | 2020-03-26 13:32 | ED.GENADUL_ITS ---
Discharge Plan Disposition Patient Disposition: HOME Condition: Improving Discharge Details Chief Complaint: Orthopedic Clinical Impression: Exacerbation of gout Primary Care Provider: Karrie Escobar ED Provider: Dmitry Funes Home Meds and New Rx's Prescriptions: New prednisone 50 mg tablet 50 mg PO DAILY 5 Days Qty: 5 RF: 0 Continued albuterol sulfate 0.63 MG/3 ML solution for nebulization 0.63 inh Inhalation PRN PRNRF: 0 activated charcoal (bulk) 1 GM powder 1 gm PO DAILY PRNRF: 0 Celery Seed 2 applic DAILY RF: 0 Trisalts 1 DAILY RF: 0 Urea Blend Capsules 2 cap PO BID RF: 0 albuterol sulfate [ProAir HFA] 90 mcg/actuation Hfa Aerosol Inhaler 2 puff Inhalation PRN PRNRF: 0 Breo Ellipta 100-25 mcg/dose blister with device 1 inh INHALATION DAILY RF: 0 Nature-Throid 32.5 mg tablet 1 mg PO DAILY RF: 0 Discharge Instructions Instructions: Gout (ED) Additional Instructions: Please take prednisone as prescribed. You may use Tylenol as needed for aches or pains. Take your second dose of colchicine on March 28. You are given the first dose today. Return develop a fever, increasing pain, or any other acute concerns. Medical Decision Making 65-year-old male presents from home complaining of feeling as if his gout is flared. He is complained of left wrist and primarily right knee achy discomfort and warmth. He is not noticed a rash or significant swelling. States a similar episode happened in the past when he drank too much alcohol and did not hydrated off during the hot summer months. He arrives with a temp of 37, slightly elevated pulse at triage at approximately 80-90 during my exam. Screening labs obtained which do note elevated CRP and uric acid. Patient somewhat improved with fluids and Toradol. This is consistent with an exacerbation of gout. I will treat him with a burst of prednisone as well as 2 doses of colchicine. He understands plan of care and indications to seek reevaluation. He is stable and improved at this time. HPI General Mode of arrival: ambulatory . Date/Time Provider Initiated Documentation: 03/26/20 13:17 . Limitations to Documentation: no limitations . Information obtained by: patient . History of Present Illness 65 year old M presents to the emergency department with the chief complaint of Joint pain that feels like gout exacerbation, described as moderate, Quality is described as dull, and is localized to the left, right, upper extremity and lower extremity. Patient reports no radiation. Patient started experiencing this day(s) and it has been constant. No relieving factors improve symptom(s), No exacerbating factors reported . Patient notes denies fever/chills, headaches, loss of appetite, nausea/vomiting and rash. Patient did receive the following treatments prior to arrival, none Related Data Home Medications Medication Instructions Recorded Confirmed albuterol sulfate 0.63 inh INHALATION PRN PRN 12/10/16 03/26/20 Celery Seed 2 applic DAILY 08/03/17 03/26/20 Trisalts 1 DAILY 08/03/17 Urea Blend Capsules 2 cap PO BID 08/03/17 03/26/20 activated charcoal (bulk) 1 gm PO DAILY PRN 08/03/17 03/26/20 albuterol sulfate [ProAir HFA] 2 puff INHALATION PRN PRN 10/31/18 03/26/20 Breo Ellipta 1 inh INHALATION DAILY 03/26/20 03/26/20 Nature-Throid 1 mg PO DAILY 03/26/20 03/26/20 prednisone 50 mg PO DAILY 5 Days #5 tab 03/26/20 Previous Rx's Medication Instructions Recorded prednisone 50 mg PO DAILY 5 Days #5 tab 03/26/20 Allergies Allergy/AdvReac Type Severity Reaction Status Date / Time No Known Allergies Allergy Unverified 03/26/20 13:19 General Stated Complaint: Orthopedic ALLY: 3 Review of Systems Narrative: 6 systems reviewed and otherwise negative. No fever, vomiting. States his been drinking too much alcohol and not enough hydration. [facility] Social History Smoking/Tobacco Use Status: Never Alcohol Intake: current Alcohol Intake frequency: 0-2 drinks per day Alcohol type: beer Drug use: Occasionally Substance use type: marijuana Do you feel safe at home: Yes Do you feel safe in your relationship?: Yes Exam Narrative Exam Narrative: GEN: awake, alert, oriented 3. Pleasant, well groomed, interactive. HEAD: Normocephalic, atraumatic ENT: Mucous membranes moist, oropharynx unremarkable, External ear exam unremarkable EYES: PERRL, EOMI NECK: Full ROM, no MARCUS, no menigismus CHEST/RESP: Nontender, clear to auscultation bilateral, no wheeze/rhonchi/rales CARDIOVASCULAR: RRR, no murmur, rub raffaele. 2+ Rad pulse bilateral ABDOMEN: Soft, nontender, no mass. +Bowel sounds EXT: Full ROM, no edema, no rash. There is slight warmth to the left wrist and right knee. All joints are fully mobile, there is no overlying erythema or significant joint swelling. Neuro: Grossly normal neurologic exam, conversant, interactive. Psych: Speech fluent, thoughts congruent, affect normal Course Vital Signs Vital signs: Vital Signs Temperature 37.3 C 03/26/20 13:18 Pulse 106 H 03/26/20 13:18 Respiratory Rate 22 03/26/20 13:18 Blood Pressure 147/79 H 03/26/20 13:18 Pulse Oximetry 97 03/26/20 13:18 Temperature 37.3 C 03/26/20 13:18 Temperature Source Oral 03/26/20 13:18 Pulse 106 H 03/26/20 13:18 Respiratory Rate 22 03/26/20 13:18 Respiratory Effort 03/26/20 13:24 Blood Pressure 147/79 H 03/26/20 13:18 Blood Pressure Position Supine 03/26/20 13:18 Pulse Oximetry 97 03/26/20 13:18 Oxygen Delivery Method Room Air 03/26/20 13:18 Oxygen Flow Rate 0 03/26/20 13:18 Pain Level 10 03/26/20 13:18
[2020-03-26] MEDS: Ketorolac 15 MG/ML VIAL IVP (13:44)
[2020-03-26] MEDS: Normal Saline 1,000 ML 1000 ML IV (13:44)
[2020-03-26 14:06] LABS: Abs Immature Grans 0.01 k/cumm (0.0-0.09); Absolute Basophil Count 0.03 k/cumm (0.0-0.2); Absolute Eosinophil Count 0.27 k/cumm (0.0-0.7); Absolute Lymphocyte Count 1.38 k/cumm (1.2-3.4); Absolute Monocyte Count 0.74 k/cumm (0.11-0.7); Absolute Neutrophil Count 7.67 k/cumm (1.2-6.7); Basophils % 0.3; Eosinophils % 2.7; HCT 43.1 % (40.0-50.0); HGB 14.2 g/dL (13.5-17.5); Immature Grans % 0.1 %; Lymphocytes % 13.7; Mean Corp. HGB Concentration 32.9 g/dL (32.0-36.0); Mean Corpuscular Hemoglobin 30.6 pg (27.0-33.0); Mean Corpuscular Volume 92.9 fL (80-95); Mean Platelet Volume 8.8 fL (8.0-11.0); Monocytes % 7.3; Neutrophils % 75.9; Platelet Count 542 x1000/uL (130-400); RBC 4.64 m/cumm (4.50-6.00); RBC Distribution Width 12.6 % (11.8-14.1)
[2020-03-26 14:29] LABS: Anion Gap 11.1 mmol/L (3-11); BUN 10 mg/dL (7-18); C-Reactive Protein 8.03 mg/dL (0.0-0.3); CO2 26.9 mmol/L (21.0-32.0); Calcium 9.4 mg/dL (8.5-10.1); Chloride 100 mmol/L (98-107); Glucose 130 mg/dL (74-106); Potassium 3.9 mmol/L (3.5-5.1); Sodium 138 mmol/L (136-145); Uric Acid 7.7 mg/dL (3.5-7.2)
[2020-03-26] MEDS: Colchicine 0.6 MG TAB PO ×2 (14:52)
[2020-03-26 15:10] VITALS: BP 152/95; PULSE 97; RESP 16; TEMP 36.6; O2SAT 95
== END 2020-03-26 15:05 | disposition home or self-care (01) ==
PROVIDERS: Emergency Provider Emergency Medicine; PCP Naturopath
DX: M10.9 Gout, unspecified (principal)
CPT/HCPCS: 36415; 80048; 96361; 96374; 99284; 84550; 85025; 86140; 99283; J1885

== ENCOUNTER 2021-01-30 03:25 | Outpatient (CLI) | payer MEDICAID, SELFPAY ==
--- NOTE | 2021-01-30 10:57 | DI.RAD_ITS ---
Exam(s) XR SHOULDER RT COMPLETE 2+V EXAM: XR SHOULDER RT COMPLETE 2+V CLINICAL HISTORY: RT SHOULDER JOINT PAIN, M25.511 TECHNIQUE: COMPARISON: CR LEFT SHOULDER COMPLETE from 11/10/2014 FINDINGS: Five views were obtained. There are moderate hypertrophic degenerative changes of the AC joint with some apparent erosions of the distal clavicle, nonspecific. There are mild marginal osteophytes of t he glenoid and humeral head, cartilaginous joint space of the glenohumeral joint appears fairly well maintained. No fracture or dislocation. IMPRESSION: Degenerative changes as described above involving AC and glenohumeral joints. RADIATION DOSE DELIVERED: Total DLP
== END 2021-01-30 03:45 ==
PROVIDERS: PCP Naturopath; Visit Provider Naturopath
DX: M25.511 Pain in right shoulder (principal); M19.011 Primary osteoarthritis, right shoulder
CPT/HCPCS: 73030

== ENCOUNTER 2021-01-30 10:31 | Outpatient (CLI) | payer MEDICAID, SELFPAY ==
--- OUTSIDE RECORDS SUMMARY | 2021-01-30 10:33 | XMS_ITS ---
:1955 Author Care Team Providers Name Role Phone DR. JAYLEEN SCHRADER Referring Provider [phone] [facility] MEDICAL RECORDS OTHER [phone] BERTHA SONDRA DMD Dentist [phone] Allergies Code Code System Name Reaction Severity Status Onset House Dust ? ? Active ? Mite NKDA ? Medications Name Status Start Date Stop Date ? ? Advair HFA 115 mcg-21 Completed ? 04/07/2018 mcg/actuation aerosol inhaler Advair HFA 230 mcg-21 Active ? Not availa ble mcg/actuation aerosol inhaler albuterol sulfate 0.63 mg/3 mL solution for nebulization Complet ed ? 04/07/2018 Inhale by inhalation route. albuterol sulfate 2.5 mg/3 mL Active ? No t available (0.083 %) solution for nebulization azithromycin 250 mg tablet Active ? Not a vailable Breo Ellipta 100 mcg-25 mcg/dose powder for inhalation Active ? Not available Inhale 1 puff(s) every day by inhalation route. Breo Ellipta 200 mcg-25 mcg/dose powder for inhalation Completed ? 09/22/2018 Inhale 1 puff every day by inhalation route. celery seed oil (bulk) Active ? Not avail able 2 tabs daily colchicine 0.6 mg capsule Completed ? 2017 dexamethasone 6 mg tablet Completed ? 2017 epinephrine 0.3 mg/0.3 mL Active ? Not av ailable injection, auto-injector Flonase Allergy Relief 50 mcg/actuation nasal spray,suspensi on Completed 11/27/2015 05/27/2017 2 (two) Suspension: daily folic acid 1 mg tablet Completed ? 8 hydrocortisone 10 mg tablet Completed ? 11/2017 hydrocortisone 5 mg tablet Completed ? 04/07 indomethacin 50 mg capsule Completed ? 04/07 kava root extract Active ? Not available oxycodone-acetaminophen 5 mg-325 Completed ? 04/07/2018 mg tablet prednisone 10 mg tablet Completed ? 04/07/20 18 prednisone 20 mg tablet Active ? Not avai lable prednisone 50 mg tablet Active ? Not avai lable ProAir HFA 90 mcg/actuation Active ? Not available aerosol inhaler Symbicort 80 mcg-4.5 Active ? Not availab le mcg/actuation HFA aerosol inhaler Xopenex HFA 45 mcg/actuation Completed ? 11/2017 aerosol inhaler Problems Name Status Onset Date Source ? Alcohol Dependence Active ? History Obstructive Sleep Apnea Syndrome Active ? History Idiopathic Sleep Related Non-obstructive Unknown ? History Alveolar Hypoventilation Posterior Rhinorrhea Active ? History Asthma Active ? History Chronic Obstructive Lung Disease Unknown ? History Procedure by Method Active ? History Mental Disorder Active ? History Procedures Date Name Performed by ? 04/07/2018 CT, Chest, W/o Contrast Xray [facility] [address] [place], [place] [address] ([address]) 06/08/2018 XR, Chest, 2 View Xray [facility] [address] [place], [place] [address] (Work Place) Results Lab Results None recorded. Past Encounters None recorded. Social History Tobacco Smoking Status Never Smoker Vaccine List None recorded. Plan of Care Reminders Provider Appointments None ? ? recorded. Lab None ? ? recorded. Referral None ? ? recorded. Procedures None ? ? recorded. Surgeries None ? ? recorded. Imaging None ? ? recorded. Vitals 09/22/2018 09:00AM Office 30 Height Weight BMI Blood Pressure 184.15 cm 97.05 kg 28.6 kg/m2 130/80 mm[Hg] 04/07/2018 09:00AM Office 30 Height Weight BMI Blood Pressure 184.15 cm 98.8 kg 29.1 kg/m2 170/90 mm[Hg] 02/21/2018 09:30AM Office 30 Height Weight BMI Blood Pressure 184.15 cm 95.03 kg 28 kg/m2 128/90 mm[Hg] 11/29/2017 Height Weight Blood Pressure 180.98 cm 94.35 kg 162/92 mm[Hg] 05/27/2017 Height Weight Blood Pressure 182.88 cm 98.88 kg 132/80 mm[Hg] 04/29/2017 Height Weight Blood Pressure 182.88 cm 96.87 kg 150/88 mm[Hg] 11/27/2015 Height Weight Blood Pressure 182.88 cm 95 kg 132/78 mm[Hg]
[2021-01-30 11:30] LABS: Abs Immature Grans 0.03 10^3/uL (0.0-0.06); Absolute Basophil Count 0.05 10^3/uL (0.0-0.2); Absolute Eosinophil Count 0.42 10^3/uL (0.0-0.7); Absolute Lymphocyte Count 1.57 10^3/uL (1.2-3.4); Absolute Monocyte Count 0.47 10^3/uL (0.1-0.8); Absolute Neutrophil Count 3.94 10^3/uL (1.2-6.7); Basophils % 0.8; ESR 32 mm/hr (0-20); Eosinophils % 6.5; HCT 42.8 % (40.0-50.0); HGB 13.9 g/dL (13.5-17.5); Immature Grans % 0.5; Lymphocytes % 24.2; MCHC 32.5 % (32.0-36.0); MCV 89.4 fL (80-95); MPV 9.1 fL (8.0-11.0); Monocytes % 7.3; Neutrophils % 60.7; Nucleated RBC 0 %; Platelet Count 526 10^3/uL (130-400); RBC 4.79 10^6/uL (4.36-5.78); RDW 13.2 % (11.8-14.1); RDW-SD 43.2 fL; WBC 6.48 10^3/uL (4.4-10.8)
[2021-01-30 11:59] LABS: ALT 22 U/L (16-63); AST 14 U/L (15-37); Albumin 3.8 g/dL (3.4-5.0); Alkaline Phosphatase 92 U/L (46-116); Anion Gap 8.7 mmol/L (3-11); BUN 11 mg/dL (7-18); Bilirubin, Total 0.3 mg/dL (0.2-1.0); C-Reactive Protein 0.99 mg/dL (0.0-0.3); CO2 29.3 mmol/L (21.0-32.0); Calcium 9.3 mg/dL (8.5-10.1); Chloride 105 mmol/L (98-107); Creatine Kinase 31 U/L (39-308); Glucose 112 mg/dL (74-106); NT-proBNP 218 pg/mL (<300); Potassium 4.4 mmol/L (3.5-5.1); Sodium 143 mmol/L (136-145); Total Protein 8.1 g/dL (6.4-8.2)
[2021-01-30 12:03] LABS: Hemoglobin A1C 5.8 % (<5.7)
[2021-01-30 12:17] LABS: Iron 93 ug/dL (65-175); Total Iron Binding Capacity 277 ug/dL (250-450); Transferrin Sat 34 % (20-55)
[2021-01-30 12:26] LABS: Ferritin 310 ng/mL (26-388); T4 5.4 ug/mL (4.7-13.3)
[2021-01-30 12:27] LABS: D-Dimer 2885 ng/mlFEU (<500)
[2021-02-02 08:49] LABS: Homocysteine 11.9 umol/L (5.0-13.9)
[2021-02-03 12:52] LABS: Antithrombin Activity, Plasma 95 % (80 - 130)
[2021-02-03 17:33] LABS: 25-Hydroxy D Total 44 ng/mL; 25-Hydroxy D2 <4.0 ng/mL; 25-Hydroxy D3 44 ng/mL
== END 2021-01-30 10:32 | disposition home or self-care (01) ==
PROVIDERS: PCP Naturopath; Visit Provider Naturopath
DX: E55.9 Vitamin D deficiency, unspecified (principal); R73.03 Prediabetes; R00.0 Tachycardia, unspecified; R39.15 Urgency of urination; E03.9 Hypothyroidism, unspecified; M25.511 Pain in right shoulder; R79.89 Other specified abnormal findings of blood chemistry; M79.18 Myalgia, other site; Z12.5 Encounter for screening for malignant neoplasm of prostate
CPT/HCPCS: 36415; 80053; 82306; 82550; 83090; 84153; 85300; 85652; 82728; 83036; 83540; 83550; 83880; 84436; 84439; 84443; 84481; 85025; 85379; 86140

== ENCOUNTER 2021-02-17 02:48 | Outpatient (CLI) | payer MEDICAID, SELFPAY ==
[2021-02-17 13:37] LABS: Hemoglobin A1C 5.5 % (<5.7)
[2021-02-17 14:14] LABS: ALT 26 U/L (16-63); AST 19 U/L (15-37); Albumin 3.7 g/dL (3.4-5.0); Alkaline Phosphatase 84 U/L (46-116); Anion Gap 10.9 mmol/L (3-11); BUN 7 mg/dL (7-18); Bilirubin, Total 0.5 mg/dL (0.2-1.0); CO2 27.1 mmol/L (21.0-32.0); CREATININE 0.9 mg/dL (0.70-1.30); Calcium 8.7 mg/dL (8.5-10.1); Chloride 105 mmol/L (98-107); Glucose 115 mg/dL (74-106); Potassium 4.2 mmol/L (3.5-5.1); Sodium 143 mmol/L (136-145); T4 4.3 ug/mL (4.7-13.3); TSH 1.42 uIU/mL (0.36-3.74); Total Protein 7.1 g/dL (6.4-8.2)
[2021-02-17 14:42] LABS: FREE T4 0.63 ng/dL (0.76-1.46)
[2021-02-17 15:50] LABS: Abs Immature Grans 0.02 10^3/uL (0.0-0.06); Absolute Basophil Count 0.07 10^3/uL (0.0-0.2); Absolute Lymphocyte Count 2.31 10^3/uL (1.2-3.4); Absolute Monocyte Count 0.66 10^3/uL (0.1-0.8); Absolute Neutrophil Count 3.89 10^3/uL (1.2-6.7); Eosinophils % 5.4; HCT 41.8 % (40.0-50.0); HGB 13.5 g/dL (13.5-17.5); Immature Grans % 0.3; Lymphocytes % 31.4; MCH 29.3 pg (27.0-33.0); MCHC 32.3 % (32.0-36.0); MCV 90.7 fL (80-95); MPV 9.4 fL (8.0-11.0); Neutrophils % 52.9; Nucleated RBC 0 %; Platelet Count 267 10^3/uL (130-400); RBC 4.61 10^6/uL (4.36-5.78); RDW 14.9 % (11.8-14.1); RDW-SD 49.7 fL; WBC 7.35 10^3/uL (4.4-10.8)
[2021-02-17 15:51] LABS: ESR 13 mm/hr (0-20)
[2021-02-17 16:11] LABS: Iron 94 ug/dL (65-175); Total Iron Binding Capacity 302 ug/dL (250-450); Transferrin Sat 31 % (20-55)
[2021-02-17 16:25] LABS: Ferritin 197 ng/mL (26-388)
[2021-02-17 17:05] LABS: C-Reactive Protein 0.44 mg/dL (0.0-0.3)
[2021-02-17 21:57] LABS: T3,Free 4.3 pg/mL (2.8-5.3)
[2021-02-20 15:05] LABS: 25-Hydroxy D Total 59 ng/mL; 25-Hydroxy D2 <4.0 ng/mL; 25-Hydroxy D3 59 ng/mL
== END 2021-02-17 02:49 | disposition home or self-care (01) ==
LOC: LBO 02:48
PROVIDERS: PCP Naturopath; Visit Provider Naturopath
DX: R79.1 Abnormal coagulation profile (principal); R79.89 Other specified abnormal findings of blood chemistry; M25.511 Pain in right shoulder; R77.8 Other specified abnormalities of plasma proteins; R00.0 Tachycardia, unspecified; E55.9 Vitamin D deficiency, unspecified; R73.03 Prediabetes; R39.15 Urgency of urination; Z12.5 Encounter for screening for malignant neoplasm of prostate; E03.9 Hypothyroidism, unspecified
CPT/HCPCS: 36415; 80053; 82306; 84153; 85652; 82728; 83036; 83540; 83550; 84436; 84439; 84443; 84481; 85025; 86140

== ENCOUNTER 2021-02-18 07:41 | Outpatient (CLI) | payer MEDICAID, SELFPAY ==
[2021-02-18 10:48] LABS: D-Dimer 1277 ng/mlFEU (<500)
== END 2021-02-18 07:42 | disposition home or self-care (01) ==
PROVIDERS: PCP Naturopath; Visit Provider Naturopath
DX: R79.1 Abnormal coagulation profile (principal); R79.89 Other specified abnormal findings of blood chemistry; M25.511 Pain in right shoulder
CPT/HCPCS: 85379

== ENCOUNTER 2021-05-22 10:02 | Emergency (ER) | payer MEDICAID, SELFPAY ==
[2021-05-22 10:14] VITALS: BP 143/103; PULSE 87; RESP 16; TEMP 36.6; O2SAT 98
--- NOTE | 2021-05-22 10:45 | DI.RAD_ITS ---
Exam(s) XR KNEE RT 3V AP,LAT,KALINA EXAM: XR KNEE RT 3V AP,LAT,KALINA CLINICAL HISTORY: pain s/p fall. TECHNIQUE: 2D digital imaging was performed of the right knee. Three views obtained. AP, lateral an d tunnel views were obtained. COMPARISON: No previous for comparison. FINDINGS: BONES: No acute fracture is present. No bony destructive lesion is seen. JOINTS: The knee is normally aligned. Moderate joint effusion. Mild spurring of the posterior patell a. SOFT TISSUE: Normal. IMPRESSION: 1. No acute fracture or dislocation. 2. Moderate joint effusion. DATA REPOSITORY: RADIATION DOSE DELIVERED:
--- NOTE | 2021-05-22 10:56 | ED.GENADUL_ITS ---
Discharge Plan Disposition Patient Disposition: HOME Condition: Stable Discharge Details Clinical Impression: Knee pain, right, Gout attack Primary Care Provider: Karrie Escobar ED Provider: Jamal Ricks Home Meds and New Rx's Prescriptions: New colchicine 0.6 mg capsule 0.6 mg PO BID 3 Days Qty: 6 RF: 0 Continued albuterol sulfate 0.63 MG/3 ML solution for nebulization 0.63 inh Inhalation PRN PRNRF: 0 activated charcoal (bulk) 1 GM powder 1 gm PO DAILY PRNRF: 0 Celery Seed 2 applic DAILY RF: 0 Trisalts 1 DAILY RF: 0 Urea Blend Capsules 2 cap PO BID RF: 0 albuterol sulfate [ProAir HFA] 90 mcg/actuation Hfa Aerosol Inhaler 2 puff Inhalation PRN PRNRF: 0 Breo Ellipta 100-25 mcg/dose blister with device 1 inh INHALATION DAILY RF: 0 Nature-Throid 32.5 mg tablet 1 mg PO DAILY RF: 0 Discharge Instructions Instructions: Gout (ED), Knee Pain (ED) Additional Instructions: follow up with your primary care provider within 1 week if you feel more ill, have fevers or spreading redness from the knee return to the emergency department Medical Decision Making 66 yo male with hx of gout in his knees per patient comes in with right knee pain. He states it started 3 weeks ago after he was going upstairs, tripped, and hit his anterior right knee, no loc or preceding symptoms to the fall. Has had pain in the knee since, though after a week it started to improve and then got swollen a week ago similar to prior gout flares. Denies new trauma, no fevers or rashes. His right knee is mildly swollen. he can fully move it. He has no erythema or warmth of the knee, normal distal sensation and pulses. Suspect gout flare s/p trauma but will xray to evaluate for fracture. History and exam not consistent with septic joint so do not feel aspiration indicated. xray unremarkable other than moderate effusion, he remains stable. Discussed with him likely gout, did offer arthrocentesis though clinical suspicion is low but he declines as he states it feels like prior gout. He now states he feels colchicine feels better so will start this and have him f/u with pcp, return precautions given Differential Diagnosis Differential Diagnosis: gout, fracture Imaging Data Radiologic Study: Attestation: I personally reviewed and interpreted this imaging study as follows: Imaging: X-Ray Radiologist's impression: IMPRESSION: 1. No acute fracture or dislocation. 2. Moderate joint effusion. HPI General Mode of arrival: wheelchair . Date/Time Provider Initiated Documentation: 05/22/21 10:43 . Limitations to Documentation: no limitations . Information obtained by: patient . History of Present Illness 66 year old M presents to the emergency department with the chief complaint of right knee pain, described as moderate, Quality is described as aching, and is localized to the right and lower extremity. Patient reports no radiation. Patient started experiencing this week(s) (3) and it has been constant. Rest improves symptom(s), Movement worsens symptoms . Patient notes no other symptoms.. Patient did receive the following treatments prior to arrival, none Related Data Home Medications Medication Instructions Recorded Confirmed albuterol sulfate 0.63 inh INHALATION PRN PRN 12/10/16 03/26/20 Celery Seed 2 applic DAILY 08/03/17 03/26/20 Trisalts 1 DAILY 08/03/17 Urea Blend Capsules 2 cap PO BID 08/03/17 03/26/20 activated charcoal (bulk) 1 gm PO DAILY PRN 08/03/17 03/26/20 albuterol sulfate [ProAir HFA] 2 puff INHALATION PRN PRN 10/31/18 03/26/20 Breo Ellipta 1 inh INHALATION DAILY 03/26/20 03/26/20 Nature-Throid 1 mg PO DAILY 03/26/20 03/26/20 colchicine 0.6 mg PO BID 3 Days #6 cap 05/22/21 Previous Rx's Medication Instructions Recorded colchicine 0.6 mg PO BID 3 Days #6 cap 05/22/21 Allergies Allergy/AdvReac Type Severity Reaction Status Date / Time No Known Allergies Allergy Unverified 05/22/21 10:19 General Stated Complaint: Orthopedic ALLY: 4 Review of Systems All systems reviewed & are unremarkable except as noted in HPI and below Constitutional Constitutional: Denies chills, Denies fever(s) and Denies weakness Cardiovascular Cardiovascular: Denies chest pain and Denies dyspnea Respiratory Respiratory: Denies cough and Denies dyspnea Gastrointestinal Gastrointestinal: Denies abdominal pain, Denies nausea and Denies vomiting Musculoskeletal Musculoskeletal: Denies joint swelling Neurologic Neurologic: Denies weakness [facility] Social History Smoking/Tobacco Use Status: Never Smoking risk assessment performed?: Yes Alcohol Intake: current Alcohol Intake frequency: 0-2 drinks per day Alcohol type: beer Drug use: Occasionally Substance use type: marijuana Do you feel safe at home: Yes Do you feel safe in your relationship?: Yes Exam Const General: no acute distress Orientation: alert HENMT Head: normal to inspection Ears: external ears normal General nose exam: external nose normal Mouth: moist mucous membranes Eyes General: appearance normal, both eyes and all related structures Neck Neck: normal visual inspection Resp Effort & Inspection: normal respiratory effort and able to speak in complete sentences Cardio Rate: regular rate Skin General skin exam: no rashes or lesions noted Neuro General: patient alert and patient oriented x3 Extrem General: capillary refill normal Psych Mental Status: mental status grossly normal Course Vital Signs Vital signs: Vital Signs Temperature 36.6 C 05/22/21 10:14 Pulse 87 05/22/21 10:14 Respiratory Rate 16 05/22/21 10:14 Blood Pressure 143/103 H 05/22/21 10:14 Pulse Oximetry 98 05/22/21 10:14 Temperature 36.6 C 05/22/21 10:14 Temperature Source Skin 05/22/21 10:14 Pulse 87 05/22/21 10:14 Respiratory Rate 16 05/22/21 10:14 Respiratory Effort 05/22/21 10:19 Blood Pressure 143/103 H 05/22/21 10:14 Blood Pressure Position Sitting 05/22/21 10:14 Pulse Oximetry 98 05/22/21 10:14 Oxygen Delivery Method Room Air 05/22/21 10:14 Oxygen Flow Rate 0 05/22/21 10:14 Pain Level 8 05/22/21 10:14
[2021-05-22] MEDS: oxyCODONE 5 MG TAB PO (11:02)
[2021-05-22] MEDS: predniSONE 20 MG TAB 60 MG PO (11:02)
[2021-05-22 11:38] VITALS: BP 125/87; PULSE 76; TEMP 36.6; O2SAT 98
[2021-05-22 12:05] VITALS: BP 134/90; PULSE 72; RESP 18; TEMP 36.7; O2SAT 97
== END 2021-05-22 12:15 | disposition home or self-care (01) ==
PROVIDERS: Emergency Provider Emergency Medicine; PCP Naturopath
DX: M25.561 Pain in right knee (principal); M10.9 Gout, unspecified; M25.461 Effusion, right knee
CPT/HCPCS: 73562; 99283; J7512

== ENCOUNTER 2021-06-22 16:04 | Outpatient (REF) | payer MEDICAID, SELFPAY ==
[2021-06-22 19:41] LABS: Uric Acid 6.6 mg/dL (3.5-7.2)
== END 2021-06-22 16:05 | disposition home or self-care (01) ==
LOC: LBN 16:04
PROVIDERS: PCP Family Medicine; Visit Provider Nurse Practitioner Family
DX: M10.9 Gout, unspecified (principal)
CPT/HCPCS: 84550

== ENCOUNTER 2021-07-14 19:40 | Observation (INO) | payer MEDICAID, SELFPAY ==
[2021-07-14 19:47] VITALS: BP 142/69; PULSE 102; RESP 18; TEMP 36.7; O2SAT 97
[2021-07-14 20:08] LABS: Lactate 1.2 mmol/L (0.6-1.4)
[2021-07-14 20:09] LABS: Abs Immature Grans 0.07 10^3/uL (0.0-0.06); Absolute Basophil Count 0.03 10^3/uL (0.0-0.2); Basophils % 0.2; Eosinophils % 0.1; HCT 41.6 % (40.0-50.0); HGB 13.3 g/dL (13.5-17.5); Immature Grans % 0.5; Lymphocytes % 7.1; MCH 29.3 pg (27.0-33.0); MCV 91.6 fL (80-95); MPV 9.4 fL (8.0-11.0); Monocytes % 7.7; Neutrophils % 84.4; Nucleated RBC 0 %; Platelet Count 300 10^3/uL (130-400); RBC 4.54 10^6/uL (4.36-5.78); RDW 14.4 % (11.8-14.1); RDW-SD 48.4 fL; WBC 14.71 10^3/uL (4.4-10.8)
[2021-07-14 20:11] LABS: Absolute Eosinophil Count 0.01 10^3/uL (0.0-0.7); Absolute Lymphocyte Count 1.04 10^3/uL (1.2-3.4); Absolute Monocyte Count 1.13 10^3/uL (0.1-0.8); Absolute Neutrophil Count 12.42 10^3/uL (1.2-6.7)
[2021-07-14 20:12] LABS: ESR 26 mm/hr (0-20)
[2021-07-14 20:37] LABS: C-Reactive Protein 10.13 mg/dL (0.0-0.3)
[2021-07-14 20:39] LABS: Albumin 3.7 g/dL (3.4-5.0); Alkaline Phosphatase 78 U/L (46-116); BUN 11 mg/dL (7-18); Bilirubin, Total 1.3 mg/dL (0.2-1.0); Calcium 9.2 mg/dL (8.5-10.1); Glucose 158 mg/dL (74-106); Potassium 3.8 mmol/L (3.5-5.1); Sodium 138 mmol/L (136-145); Total Protein 7.7 g/dL (6.4-8.2)
[2021-07-14 20:40] LABS: ALT 17 U/L (16-63); AST 10 U/L (15-37); Chloride 100 mmol/L (98-107)
[2021-07-14 20:53] LABS: Procalcitonin < 0.1 ng/mL
[2021-07-14] MEDS: Normal Saline 1,000 ML 1000 ML IV (21:45)
[2021-07-14 21:48] LABS: Uric Acid 7.2 mg/dL (3.5-7.2)
[2021-07-14 21:52] LABS: Clarity Cloudy
[2021-07-14 21:53] LABS: Mononuclear Cells 12 %; Nucleated Cells 49650 uL (0); Polynuclear Cells 88 %
[2021-07-14 22:05] VITALS: BP 119/68; PULSE 85; RESP 16; TEMP 36.8; O2SAT 97
--- NOTE | 2021-07-14 22:15 | DI.RAD_ITS ---
Exam(s) XR KNEE RT 3V AP,LAT,KALINA EXAM: XR KNEE RT 3V AP,LAT,KALINA CLINICAL HISTORY: right knee infection/bursitis. TECHNIQUE: 2D digital imaging was performed. COMPARISON: CR XR KNEE RT 3V AP,LAT,KALINA from 05/22/2021 FINDINGS: There is a large joint effusion. This has further increased from 05/22/2021. No evidence of fracture. No joint space narrowing. No osteophytes. No radiopaque foreign body. IMPRESSION: Large joint effusion. Given the history here this is possibly infected joint space. DATA REPOSITORY: RADIATION DOSE DELIVERED:
--- NOTE | 2021-07-14 22:31 | W.ED.GENAD ---
Discharge Plan Disposition Patient Disposition: [facility] INPATIENT Condition: Improving Discharge Details Clinical Impression: Knee pain, right, Bursitis of right patella Primary Care Provider: Donovan Benites ED Provider: Randall Marte Home Meds and New Rx's Prescriptions: No Action albuterol sulfate 0.63 MG/3 ML solution for nebulization 0.63 inh Inhalation PRN PRNRF: 0 activated charcoal (bulk) 1 GM powder 1 g PO DAILY PRNRF: 0 Celery Seed 2 applic DAILY RF: 0 Trisalts 1 DAILY RF: 0 Urea Blend Capsules 2 cap PO BID RF: 0 albuterol sulfate [ProAir HFA] 90 mcg/actuation Hfa Aerosol Inhaler 2 puff Inhalation PRN PRNRF: 0 Breo Ellipta 100-25 mcg/dose blister with device 1 inh INHALATION DAILY RF: 0 Nature-Throid 32.5 mg tablet 1 mg PO DAILY RF: 0 Medical Decision Making 66-year-old male with a past medical history of gout, asthma, anxiety, previous left knee surgery presents for pain in his right knee. Patient states that for the last week he has had mild chronic pain in both of his knees, he did fall a few weeks ago but had no significant pain since then. And then in the last 12 to 24 hours he had notable swelling and pain and redness in his right knee. Patient was at [facility] urgent care this evening, while there he was sweaty, chills, and had a low blood pressure. He was sent to the ER for further evaluation of septic joint. Currently he admits to chills, pain in his right knee with any movement, but denies any cough, chest pain or shortness of breath. He has not received a Covid vaccination. He has not been infected with Covid in the past. He currently denies any other significant pain in other joints. He states that he has had episodes of gout before, but they have not felt like this, he has not had the chills or significant swelling like this. No other complaint time. No other modifying factors. Physical exam demonstrates notable swelling superior to the patella as well as medial and lateral. No actual significant swelling at this time by the space just proximal to the tibial plateau. However in spite of the lack of swelling he does have tenderness there. There is redness on the medial aspect of the knee. Pain with flexion and extension. When the patient was at the urgent care he demonstrated low blood pressure, sweats and chills. However here his blood pressure is normal, heart rate is slightly elevated but he is afebrile. Concern for gout versus infected bursitis. With his tenderness over the knee space though we will evaluate for potential knee infection as well. We will get infection markers, monitor closely and reassess 10:10 PM Utilizing sterile technique I attempted to drain the peripatellar space, as well as evaluate for any knee space effusion. The patella bursa was easily aspirated, and purulent cloudy yellow fluid was removed. I was unable to ascertain any fluid in the actual knee space though otherwise. Laboratory work-up shows a white count of 14.7, normal lactate, ESR is minimally elevated at 26, CRP is notably elevated. Procalcitonin is less than 0.1. Patellar bursa aspirate demonstrates WBC count of 49,650, high pollen nuclear WBCs with 88%, rare uric acid crystals are noted. Uric acid level is within normal limits. Fluid will be sent for cultures. While there may certainly be a gouty attack component, am concerned for an infection as well. We will treat with vancomycin, admit for observation, and wait for cultures 10:48 PM I did discuss the case with Dr. Hernandez. He will follow up with the patient tomorrow inpatient. He feels this more likely reflects a gouty attack at this stage. Discussed the case with the hospitalist Dr. Dupree, he agrees with the assessment and plan. He will place admission orders. I have extensively reviewed the treatment plan with the patient. I have addressed all patient concerns at this time. I have also discussed the plan with the admitting physician and they agree with the current assessment and plan and have agreed to assume responsibility for the patient. All parties demonstrate verbal understanding and agreement with our assessment and plan at this time. The documentation in this chart was dictated using [facility] dictation software. Please excuse any dictation errors. HPI General Date/Time Provider Initiated Documentation: 07/14/21 19:42. HPI Narrative: 66-year-old male with a past medical history of gout, asthma, anxiety, previous left knee surgery presents for pain in his right knee. Patient states that for the last week he has had mild chronic pain in both of his knees, he did fall a few weeks ago but had no significant pain since then. And then in the last 12 to 24 hours he had notable swelling and pain and redness in his right knee. Patient was at [facility] urgent care this evening, while there he was sweaty, chills, and had a low blood pressure. He was sent to the ER for further evaluation of septic joint. Currently he admits to chills, pain in his right knee with any movement, but denies any cough, chest pain or shortness of breath. He has not received a Covid vaccination. He has not been infected with Covid in the past. He currently denies any other significant pain in other joints. He states that he has had episodes of gout before, but they have not felt like this, he has not had the chills or significant swelling like this. No other complaint time. No other modifying factors. Related Data Home Medications Medication Instructions Recorded Confirmed albuterol sulfate 0.63 inh INHALATION PRN PRN 12/10/16 07/14/21 Celery Seed 2 applic DAILY 08/03/17 07/14/21 Trisalts 1 DAILY 08/03/17 07/14/21 Urea Blend Capsules 2 cap PO BID 08/03/17 07/14/21 activated charcoal (bulk) 1 g PO DAILY PRN 08/03/17 07/14/21 albuterol sulfate [ProAir HFA] 2 puff INHALATION PRN PRN 10/31/18 07/14/21 Breo Ellipta 1 inh INHALATION DAILY 03/26/20 07/14/21 Nature-Throid 1 mg PO DAILY 03/26/20 07/14/21 Allergies Allergy/AdvReac Type Severity Reaction Status Date / Time acetaminophen AdvReac makes me Unverified 07/14/21 19:49 feel wierd General Stated Complaint: Orthopedic ALLY: 3 Review of Systems All systems reviewed & are unremarkable except as noted in HPI and below PFSH Family History Mother , 93 No problems noted. Father , 85 Cancer Social History Smoking/Tobacco Use Status: Never Second Hand Exposure: Yes Smoking risk assessment performed?: Yes Alcohol Intake: current Alcohol type: beer Drug use: Current Sobriety Caregiver/Support person: No Household members: friend(s) Pets and animals: No Sexually active: Yes What is your relationship status?: living with partner Panel score (0-1 are the most socially isolated patients): 1 Do you feel safe at home: Yes Do you feel safe in your relationship?: Yes Exam Narrative Exam Narrative: 1.Const: Well-nourished, Well-developed, appearing stated age 2.Eyes: PERRL, no conjunctival injection, and symmetrical lids. 3.ENT: Atraumatic external nose and ears. Moist MM. Neck: Symmetric, trachea midline, No thyromegaly. 4.CVS: +S1/S2, No murmurs or gallops. Peripheral pulses 2+ and equal in all extremities. Brisk capillary refill in all extremities. 5.RESP: Unlabored respiratory effort. Clear to auscultation bilaterally. No wheezes rales or rhonchi 6.GI: Soft, Nontender/Nondistended, No hepatosplenomegaly. No guarding or rebound. 7.MSK: Right knee demonstrates suprapatellar swelling as well as swelling medially and laterally to the patella for the right knee. There is redness on the medial aspect. Pain with flexion and extension of the knee. There is no significant swelling in the infrapatellar region just above the tibial plateau, however he does have palpable pain and tenderness there. No pain in the medial thigh. Exam distal to the knee demonstrates good flexion and extension, normal sensation throughout, no redness or swelling. No significant redness or swelling in the ankle or foot. No calf tenderness. 8.Skin: Please see musculoskeletal 9.Neuro: radiation safety officer II-XII grossly intact. Sensation grossly intact, no focal neurologic deficits. 10.Psych: (AAO) x3. Appropriate mood and affect Course Vital Signs Vital signs: Vital Signs Temperature 36.7 C 07/14/21 19:47 Pulse 102 H 07/14/21 19:47 Respiratory Rate 18 07/14/21 19:47 Blood Pressure 142/69 H 07/14/21 19:47 Pulse Oximetry 97 07/14/21 19:47 Temperature 36.8 C 07/14/21 22:05 Temperature Source Temporal Artery Scan 07/14/21 22:05 Pulse 85 07/14/21 22:05 Respiratory Rate 16 07/14/21 22:05 Respiratory Effort 07/14/21 19:52 Blood Pressure 119/68 07/14/21 22:05 Pulse Oximetry 97 07/14/21 22:05 Oxygen Delivery Method Room Air 07/14/21 22:05 Oxygen Flow Rate 0 07/14/21 22:05 Pain Level 5 07/14/21 22:05 Lab/Test Results Lab/Test Results: 07/14/21 20:55 Synovial - Right Knee Body Fluid Culture - Pending 07/14/21 20:55 Synovial - Right Knee Gram Stain - Pending 07/14/21 20:17 Blood Blood Culture - Pending 07/14/21 20:15 Blood Blood Culture - Pending Laboratory Tests Range/Units 07/14/21 07/14/21 07/14/21 20:00 20:00 20:00 WBC (4.4-10.8) 10^3/uL RBC (4.36-5.78) 10^6/uL Hgb (13.5-17.5) g/dL Hct (40.0-50.0) % MCV (80-95) fL MCH (27.0-33.0) pg MCHC (32.0-36.0) % RDW (11.8-14.1) % Plt Count (130-400) 10^3/uL MPV (8.0-11.0) fL Immature Gran % Neutrophils % Lymphocytes % Monocytes % Eosinophils % Basophils % Nucleated RBC % % Absolute Neutrophils (1.2-6.7) 10^3/uL Absolute Lymphocytes (1.2-3.4) 10^3/uL Absolute Monocytes (0.1-0.8) 10^3/uL Absolute Eosinophils (0.0-0.7) 10^3/uL Absolute Basophils (0.0-0.2) 10^3/uL ESR (0-20) mm/hr 26 H VBG Lactate (0.6-1.4) mmol/L Sodium (136-145) mmol/L Potassium (3.5-5.1) mmol/L Chloride (98-107) mmol/L Carbon Dioxide (21.0-32.0) mmol/L Anion Gap (3-11) mmol/L BUN (7-18) mg/dL Creatinine (0.70-1.30) mg/dL Estimated GFR/1.73 m2 (mL/min/1.73m2) Glucose (74-106) mg/dL Uric Acid (3.5-7.2) mg/dL Calcium (8.5-10.1) mg/dL Total Bilirubin (0.2-1.0) mg/dL AST (15-37) U/L ALT (16-63) U/L Alkaline Phosphatase (46-116) U/L C-Reactive Protein (0.0-0.3) mg/dL 10.13 H Total Protein (6.4-8.2) g/dL Albumin (3.4-5.0) g/dL Procalcitonin ng/mL < 0.1 Fluid Source Fluid Color Fluid Clarity Fluid WBC (0) uL Fld Polynuclear WBCs % % Fluid Mononuclear Cell % Fluid Crystals Fluid Crystal Source Range/Units 07/14/21 07/14/21 07/14/21 20:00 20:00 20:00 WBC (4.4-10.8) 10^3/uL 14.71 H RBC (4.36-5.78) 10^6/uL 4.54 Hgb (13.5-17.5) g/dL 13.3 L Hct (40.0-50.0) % 41.6 MCV (80-95) fL 91.6 MCH (27.0-33.0) pg 29.3 MCHC (32.0-36.0) % 32.0 RDW (11.8-14.1) % 14.4 H Plt Count (130-400) 10^3/uL 300 MPV (8.0-11.0) fL 9.4 Immature Gran % 0.5 Neutrophils % 84.4 Lymphocytes % 7.1 Monocytes % 7.7 Eosinophils % 0.1 Basophils % 0.2 Nucleated RBC % % 0 Absolute Neutrophils (1.2-6.7) 10^3/uL 12.42 H Absolute Lymphocytes (1.2-3.4) 10^3/uL 1.04 L Absolute Monocytes (0.1-0.8) 10^3/uL 1.13 H Absolute Eosinophils (0.0-0.7) 10^3/uL 0.01 Absolute Basophils (0.0-0.2) 10^3/uL 0.03 ESR (0-20) mm/hr VBG Lactate (0.6-1.4) mmol/L 1.2 Sodium (136-145) mmol/L 138 Potassium (3.5-5.1) mmol/L 3.8 Chloride (98-107) mmol/L 100 Carbon Dioxide (21.0-32.0) mmol/L 30.0 Anion Gap (3-11) mmol/L 8.0 BUN (7-18) mg/dL 11 Creatinine (0.70-1.30) mg/dL 1.0 Estimated GFR/1.73 m2 (mL/min/1.73m2) >= 60.00 Glucose (74-106) mg/dL 158 H Uric Acid (3.5-7.2) mg/dL Calcium (8.5-10.1) mg/dL 9.2 Total Bilirubin (0.2-1.0) mg/dL 1.3 H AST (15-37) U/L 10 L ALT (16-63) U/L 17 Alkaline Phosphatase (46-116) U/L 78 C-Reactive Protein (0.0-0.3) mg/dL Total Protein (6.4-8.2) g/dL 7.7 Albumin (3.4-5.0) g/dL 3.7 Procalcitonin ng/mL Fluid Source Fluid Color Fluid Clarity Fluid WBC (0) uL Fld Polynuclear WBCs % % Fluid Mononuclear Cell % Fluid Crystals Fluid Crystal Source Range/Units 07/14/21 07/14/21 07/14/21 20:00 20:06 20:46 WBC (4.4-10.8) 10^3/uL RBC (4.36-5.78) 10^6/uL Hgb (13.5-17.5) g/dL Hct (40.0-50.0) % MCV (80-95) fL MCH (27.0-33.0) pg MCHC (32.0-36.0) % RDW (11.8-14.1) % Plt Count (130-400) 10^3/uL MPV (8.0-11.0) fL Immature Gran % Neutrophils % Lymphocytes % Monocytes % Eosinophils % Basophils % Nucleated RBC % % Absolute Neutrophils (1.2-6.7) 10^3/uL Absolute Lymphocytes (1.2-3.4) 10^3/uL Absolute Monocytes (0.1-0.8) 10^3/uL Absolute Eosinophils (0.0-0.7) 10^3/uL Absolute Basophils (0.0-0.2) 10^3/uL ESR (0-20) mm/hr VBG Lactate (0.6-1.4) mmol/L Sodium (136-145) mmol/L Potassium (3.5-5.1) mmol/L Chloride (98-107) mmol/L Carbon Dioxide (21.0-32.0) mmol/L Anion Gap (3-11) mmol/L BUN (7-18) mg/dL Creatinine (0.70-1.30) mg/dL Estimated GFR/1.73 m2 (mL/min/1.73m2) Glucose (74-106) mg/dL Uric Acid (3.5-7.2) mg/dL 7.2 Calcium (8.5-10.1) mg/dL Total Bilirubin (0.2-1.0) mg/dL AST (15-37) U/L ALT (16-63) U/L Alkaline Phosphatase (46-116) U/L C-Reactive Protein (0.0-0.3) mg/dL Total Protein (6.4-8.2) g/dL Albumin (3.4-5.0) g/dL Procalcitonin ng/mL Fluid Source Fluid Color Fluid Clarity Fluid WBC (0) uL Fld Polynuclear WBCs % % Fluid Mononuclear Cell % Fluid Crystals See Comment Cancelled Fluid Crystal Source R Knee Cancelled Range/Units 07/14/21 20:55 WBC (4.4-10.8) 10^3/uL RBC (4.36-5.78) 10^6/uL Hgb (13.5-17.5) g/dL Hct (40.0-50.0) % MCV (80-95) fL MCH (27.0-33.0) pg MCHC (32.0-36.0) % RDW (11.8-14.1) % Plt Count (130-400) 10^3/uL MPV (8.0-11.0) fL Immature Gran % Neutrophils % Lymphocytes % Monocytes % Eosinophils % Basophils % Nucleated RBC % % Absolute Neutrophils (1.2-6.7) 10^3/uL Absolute Lymphocytes (1.2-3.4) 10^3/uL Absolute Monocytes (0.1-0.8) 10^3/uL Absolute Eosinophils (0.0-0.7) 10^3/uL Absolute Basophils (0.0-0.2) 10^3/uL ESR (0-20) mm/hr VBG Lactate (0.6-1.4) mmol/L Sodium (136-145) mmol/L Potassium (3.5-5.1) mmol/L Chloride (98-107) mmol/L Carbon Dioxide (21.0-32.0) mmol/L Anion Gap (3-11) mmol/L BUN (7-18) mg/dL Creatinine (0.70-1.30) mg/dL Estimated GFR/1.73 m2 (mL/min/1.73m2) Glucose (74-106) mg/dL Uric Acid (3.5-7.2) mg/dL Calcium (8.5-10.1) mg/dL Total Bilirubin (0.2-1.0) mg/dL AST (15-37) U/L ALT (16-63) U/L Alkaline Phosphatase (46-116) U/L C-Reactive Protein (0.0-0.3) mg/dL Total Protein (6.4-8.2) g/dL Albumin (3.4-5.0) g/dL Procalcitonin ng/mL Fluid Source R Knee Fluid Color Yellow Fluid Clarity Cloudy Fluid WBC (0) uL 02329 Fld Polynuclear WBCs % % 88 Fluid Mononuclear Cell % 12 Fluid Crystals Fluid Crystal Source Procedures Joint Aspiration/Injection Joint Asp./Inject. 1: Time Out Performed: Yes Side of body: right Joint Aspirated: knee (medial patellar bursa) Ultrasound Guidance: No Skin Prep: Chlorhexidene Local Anesthetic: Lidocaine 1% and with Epi Amount of anesthesia used (mL): 3 Needle Size Used: 20G Fluid Obtained: turbid Total fluid obtained (mL): 2 Patient Tolerated Procedure: well and no complications Complications: none Joint Asp./Inject. 2: Time Out Performed: Yes Joint Aspirated: knee (medial knee proximal to tibial plateau) Ultrasound Guidance: No Skin Prep: Chlorhexidene Local Anesthetic: Lidocaine 1% and with Epi Amount of anesthesia used (mL): 2 Needle Size Used: 22G Patient Tolerated Procedure: well and other (unable to obtain any fluid) PAWSS Have you Been Recently Intoxicated or Drunk Within the Last 30 days?: No Have you Ever Experienced Previous Episodes of Alcohol Withdrawal?: No Have you ever Experienced Withdrawal Seizures?: No Have you ever Experienced Delirium Tremens(DT)s?: No Have you ever undergone Alcohol Rehabilitation Treatment (i.e, inpt ot outpatient treatment programs)?: No Have you ever Experienced Blackouts?: No Have you ever Combined Alcohol with other Downers within the last 90 days?: No Have you ever Combined Alcohol with any other Substance of Abuse during the last 90 days?: No Positive Blood Alcohol level on Presentation? [PCS.BAL]: No Evidence of Increased Autonomic Activity (i.e. HR>120, tremor, sweating, agitation, nausea)?: No Result: 0
--- NOTE | 2021-07-14 22:41 | NUR.NOTE ---
Nursing Note: Pt plans to be admitted. RN went to collect COVID test. Patient refuses to be tested and states I will go home tonight before I get COVID tested. This is a procedure and I dont want it. Teaching about the test has been given. Patient still refuses test. MD, Nursing automobile body repair supervisor, and Med/surg charge made aware.
--- NOTE | 2021-07-14 22:43 | W.PM.HP.N ---
Date of service: 07/14/21 Time of Service: 22:44 Assessment and Plan Assessment and plan (1) Septic infrapatellar bursitis of right knee: Start date: 07/14/21 Status: Acute Assessment and plan: This is a 66-year-old gentleman presented to the ED with a swollen right knee with a history of gout. The effusion could be consistent with gouty arthritis flare but very minimal crystals. The elevated WBC does indicate an inflammatory process and could be septic. I will continue vancomycin with orthopedic consultation to review. Patient will have physical therapy evaluate for ambulation with assistive device if needed. (2) Knee pain, right: Start date: 07/14/21 Status: Acute Assessment and plan: Patient had no injury except for remote fall and this may be exacerbation of chronic issues rather than acute problem. Imaging revealed no fractures. Reviewed by orthopedics and follow-up with PCP chronically. Qualifiers: Chronicity: acute Qualified Code(s): M25.561 - Pain in right knee (3) Gout of right knee: Status: Chronic Assessment and plan: But does have a history of gout though his uric acid crystals were minimal and his uric acid serum level was normal though may be the case. He should consider allopurinol and colchicine as treatment options. He is resistant to allopathic medicine other than narcotic therapy. Qualifiers: Gout etiology: idiopathic Chronicity: acute Qualified Code(s): M10.061 - Idiopathic gout, right knee History of Present Illness History of Present Illness Chief Complaint: Right knee pain and swelling Narrative: This is a 66-year-old male patient with a past history of gout for least 2 years though he is on no preventive therapy other than naturopathic therapy, asthma and anxiety with previous left knee surgery related to the ED with right knee pain and swelling. The patient had discomfort over both knees chronically and did have a fall a few weeks prior to admission to the ED but had no significant change in pain post right knee did swell transiently. Or less in the last day the patient began to have no swelling in his right leg with redness and most of the discomfort above his kneecap. Missing an urgent care with symptoms of being sweaty, chills and a low blood pressure. He was sent to the ED for evaluation and his right knee was tapped with purulent effusion obtained with minimal crystals and about 50,000 WBC count. Because of patient's systemic symptoms though he had no fever measured he was admitted on IV vancomycin for possible septic bursitis. There is over his infrapatellar bursa. After the tap patient was more comfortable but was receiving IV morphine for pain. With review of systems he has no other new complaints and no he was a smoker he himself overall healthy on minimal meds and is himself on only taking natural supplements for his gout. His uric acid in the ED was not elevated. CRP and sed rate were elevated with sed rate only minimally. Review of Systems Narrative: 13 point review of systems otherwise unrevealing or stable. [facility] Family History Mother , 93 No problems noted. Father , 85 Cancer Social History Smoking/Tobacco Use Status: Never Second Hand Exposure: Yes Smoking risk assessment performed?: Yes Alcohol Intake: current Alcohol type: beer Drug use: Current Sobriety Caregiver/Support person: No Household members: friend(s) Pets and animals: No Sexually active: Yes What is your relationship status?: living with partner Panel score (0-1 are the most socially isolated patients): 1 Do you feel safe at home: Yes Do you feel safe in your relationship?: Yes Meds Allergies and Home Medications Allergies Allergy/AdvReac Type Severity Reaction Status Date / Time acetaminophen AdvReac makes me Unverified 07/14/21 19:49 feel wierd Home Medications Medication Instructions Recorded Confirmed Type albuterol sulfate 0.63 inh INHALATION PRN PRN 12/10/16 07/14/21 History Celery Seed 2 applic DAILY 08/03/17 07/14/21 History Trisalts 1 DAILY 08/03/17 07/14/21 History Urea Blend Capsules 2 cap PO BID 08/03/17 07/14/21 History activated charcoal (bulk) 1 g PO DAILY PRN 08/03/17 07/14/21 History albuterol sulfate [ProAir HFA] 2 puff INHALATION PRN PRN 10/31/18 07/14/21 History Breo Ellipta 1 inh INHALATION DAILY 03/26/20 07/14/21 History Nature-Throid 1 mg PO DAILY 03/26/20 07/14/21 History oxycodone 5 mg PO Q6H PRN #10 tab 07/15/21 Rx prednisone See Rx Instructions .ROUTE 07/15/21 Rx .COMPLEX #20 tab Exam Narrative Exam Narrative: General: Patient appears older than stated age, alert and oriented x3 and in no acute distress. HEENT: Normocephalic, unkempt [place] and hair, coarsened features of face. Eyes with pupils equal and react to light symmetrically, extraocular movement intact and sclera anicteric. Oropharynx with dry mucosa. Neck: Supple without JVD. Back: Slightly stooped posture without CVA tenderness. Lung: Bronchovesicular breath sounds diffusely with no rales or rhonchi. No expiratory wheeze. Heart: Regular rate and rhythm with no murmurs gallops appreciated. Abdomen: Scaphoid contour, soft nontender to palpation with no palpable hepatosplenomegaly. Genitalia/rectal: Exam deferred. Extremities: Without clubbing, cyanosis or pitting edema peripherally. Peripheral pulses intact. Right knee with swelling and increased warmth to touch over the infra patella bursa with minimal fluctuance. Is moderately tender to palpation over this area. He does have decreased range of motion. Skin: Actinic changes over sun exposed areas, otherwise, warm and dry. Normal turgor. Neuro: Cranial nerves II through XII gross intact, no focal motor deficits. Psych: Slightly pressured speech, normal affect otherwise. Normal mood. No abnormal thought processes. Remote and recent memory intact. Results Imaging Imaging Studies: XR KNEE RT 3V AP,LAT,KALINA EXAM: XR KNEE RT 3V AP,LAT,KALINA CLINICAL HISTORY: right knee infection/bursitis. TECHNIQUE: 2D digital imaging was performed. COMPARISON: CR XR KNEE RT 3V AP,LAT,KALINA from 05/22/2021 FINDINGS: There is a large joint effusion. This has further increased from 05/22/2021. No evidence of fracture. No joint space narrowing. No osteophytes. No radiopaque foreign body. IMPRESSION: Large joint effusion. Given the history here this is possibly infected joint space. Labs Result diagrams: 07/15/21 06:10 07/15/21 06:10 Labs: Laboratory Results - last 24 hr 07/14/21 07/14/21 07/14/21 20:00 20:00 20:00 WBC RBC Hgb Hct MCV MCH MCHC RDW Plt Count MPV Immature Gran % Neutrophils % Lymphocytes % Monocytes % Eosinophils % Basophils % Nucleated RBC % Absolute Neutrophils Absolute Lymphocytes Absolute Monocytes Absolute Eosinophils Absolute Basophils ESR 26 H VBG Lactate Sodium Potassium Chloride Carbon Dioxide Anion Gap BUN Creatinine Estimated GFR/1.73 m2 Glucose Uric Acid Calcium Total Bilirubin AST ALT Alkaline Phosphatase C-Reactive Protein 10.13 H Total Protein Albumin Procalcitonin < 0.1 Fluid Source Fluid Color Fluid Clarity Fluid WBC Fld Polynuclear WBCs % Fluid Mononuclear Cell Fluid Crystals Fluid Crystal Source 07/14/21 07/14/21 07/14/21 20:00 20:00 20:00 WBC 14.71 H RBC 4.54 Hgb 13.3 L Hct 41.6 MCV 91.6 MCH 29.3 MCHC 32.0 RDW 14.4 H Plt Count 300 MPV 9.4 Immature Gran % 0.5 Neutrophils % 84.4 Lymphocytes % 7.1 Monocytes % 7.7 Eosinophils % 0.1 Basophils % 0.2 Nucleated RBC % 0 Absolute Neutrophils 12.42 H Absolute Lymphocytes 1.04 L Absolute Monocytes 1.13 H Absolute Eosinophils 0.01 Absolute Basophils 0.03 ESR VBG Lactate 1.2 Sodium 138 Potassium 3.8 Chloride 100 Carbon Dioxide 30.0 Anion Gap 8.0 BUN 11 Creatinine 1.0 Estimated GFR/1.73 m2 >= 60.00 Glucose 158 H Uric Acid Calcium 9.2 Total Bilirubin 1.3 H AST 10 L ALT 17 Alkaline Phosphatase 78 C-Reactive Protein Total Protein 7.7 Albumin 3.7 Procalcitonin Fluid Source Fluid Color Fluid Clarity Fluid WBC Fld Polynuclear WBCs % Fluid Mononuclear Cell Fluid Crystals Fluid Crystal Source 07/14/21 07/14/21 07/14/21 20:00 20:06 20:46 WBC RBC Hgb Hct MCV MCH MCHC RDW Plt Count MPV Immature Gran % Neutrophils % Lymphocytes % Monocytes % Eosinophils % Basophils % Nucleated RBC % Absolute Neutrophils Absolute Lymphocytes Absolute Monocytes Absolute Eosinophils Absolute Basophils ESR VBG Lactate Sodium Potassium Chloride Carbon Dioxide Anion Gap BUN Creatinine Estimated GFR/1.73 m2 Glucose Uric Acid 7.2 Calcium Total Bilirubin AST ALT Alkaline Phosphatase C-Reactive Protein Total Protein Albumin Procalcitonin Fluid Source Fluid Color Fluid Clarity Fluid WBC Fld Polynuclear WBCs % Fluid Mononuclear Cell Fluid Crystals See Comment Cancelled Fluid Crystal Source R Knee Cancelled 07/14/21 20:55 WBC RBC Hgb Hct MCV MCH MCHC RDW Plt Count MPV Immature Gran % Neutrophils % Lymphocytes % Monocytes % Eosinophils % Basophils % Nucleated RBC % Absolute Neutrophils Absolute Lymphocytes Absolute Monocytes Absolute Eosinophils Absolute Basophils ESR VBG Lactate Sodium Potassium Chloride Carbon Dioxide Anion Gap BUN Creatinine Estimated GFR/1.73 m2 Glucose Uric Acid Calcium Total Bilirubin AST ALT Alkaline Phosphatase C-Reactive Protein Total Protein Albumin Procalcitonin Fluid Source R Knee Fluid Color Yellow Fluid Clarity Cloudy Fluid WBC 50530 Fld Polynuclear WBCs % 88 Fluid Mononuclear Cell 12 Fluid Crystals Fluid Crystal Source Last Vital Signs Temp 36.8 C 07/14/21 22:05 Pulse 85 07/14/21 22:05 Resp 16 07/14/21 22:05 BP 119/68 07/14/21 22:05 Pulse Ox 97 07/14/21 22:05 PAWSS Have you Been Recently Intoxicated or Drunk Within the Last 30 days?: No Have you Ever Experienced Previous Episodes of Alcohol Withdrawal?: No Have you ever Experienced Withdrawal Seizures?: No Have you ever Experienced Delirium Tremens(DT)s?: No Have you ever undergone Alcohol Rehabilitation Treatment (i.e, inpt ot outpatient treatment programs)?: No Have you ever Experienced Blackouts?: No Have you ever Combined Alcohol with other Downers within the last 90 days?: No Have you ever Combined Alcohol with any other Substance of Abuse during the last 90 days?: No Positive Blood Alcohol level on Presentation? [PCS.BAL]: No Evidence of Increased Autonomic Activity (i.e. HR>120, tremor, sweating, agitation, nausea)?: No Result: 0
--- NOTE | 2021-07-14 23:05 | DI.VRAD_ITS ---
PROCEDURE INFORMATION: Exam: XR Right Knee Exam date and time: 07/14/2021 10:21 PM Age: 66 years old Clinical indication: Other: Right knee infection/bursitis TECHNIQUE: Imaging protocol: XR Right knee. Views: 3 views. COMPARISON: CR XR KNEE RT 3V AP,LAT,KALINA 05/22/2021 11:14 AM FINDINGS: Bones/joints: No fracture. No malalignment. Soft tissues: Soft tissues notable for a moderate suprapatellar effusion. IMPRESSION: Moderate suprapatellar effusion Dictated and Authenticated by: Jamir Gregorio MD. Ordering:RAMONA Pereira MD
[2021-07-14 23:13] LABS: Source Nasal/Nares
--- NOTE | 2021-07-14 23:16 | NUR.NOTE ---
Nursing Note:After patient returned from X-ray. RN explained to patient that he will need to be in negative air flow, staff gowning, and unable to have visitors as he refused his COVID swab. COVID testing teaching provided to patient. Patient examined the swab for liquid. Patient swabbed himself under direct supervision of RN. Swab sent to the lab.
[2021-07-15 00:05] LABS: COVID-19 PCR Negative (Negative)
[2021-07-15 00:24] VITALS: BP 103/65; PULSE 91; RESP 16; TEMP 37.3; O2SAT 96
[2021-07-15] MEDS: Normal Saline 1,000 ML 125 ML IV ×2 (01:01→08:42)
[2021-07-15] MEDS: MORPHine 4 MG/ML SYR IVP ×3 (01:14→07:49)
[2021-07-15] MEDS: Heparin 5,000 UNITS/ML VIAL 5000 UNITS SC ×2 (01:45→10:48)
[2021-07-15 03:18] VITALS: BP 107/61; PULSE 94; RESP 18; TEMP 36.5; O2SAT 96
[2021-07-15 07:05] LABS: Abs Immature Grans 0.02 10^3/uL (0.0-0.06); Absolute Basophil Count 0.03 10^3/uL (0.0-0.2); Absolute Eosinophil Count 0.07 10^3/uL (0.0-0.7); Absolute Monocyte Count 0.82 10^3/uL (0.1-0.8); Basophils % 0.4; Eosinophils % 0.9; HCT 36.9 % (40.0-50.0); HGB 11.8 g/dL (13.5-17.5); Immature Grans % 0.3; Lymphocytes % 17.9; MCH 29.6 pg (27.0-33.0); MCV 92.5 fL (80-95); MPV 9.6 fL (8.0-11.0); Monocytes % 10.5; Nucleated RBC 0 %; Platelet Count 258 10^3/uL (130-400); RBC 3.99 10^6/uL (4.36-5.78); RDW 14.5 % (11.8-14.1); RDW-SD 49.3 fL; WBC 7.83 10^3/uL (4.4-10.8)
[2021-07-15 07:19] LABS: Absolute Neutrophil Count 5.48 10^3/uL (1.2-6.7)
[2021-07-15] MEDS: methylPREDNISolone ACETATE 80 MG/ML VIAL IJ (07:29)
[2021-07-15] MEDS: Bupivacaine 0.25% Pres-Free 10 ML VIAL IJ (07:29)
[2021-07-15 07:32] LABS: BUN 9 mg/dL (7-18); CREATININE 0.7 mg/dL (0.70-1.30); Calcium 8.4 mg/dL (8.5-10.1); Glucose 106 mg/dL (74-106); Total Protein 6.6 g/dL (6.4-8.2)
[2021-07-15 07:33] LABS: ALT 14 U/L (16-63); AST 12 U/L (15-37); Alkaline Phosphatase 59 U/L (46-116); Anion Gap 8.6 mmol/L (3-11); Bilirubin, Total 1.2 mg/dL (0.2-1.0); CO2 26.4 mmol/L (21.0-32.0); Chloride 106 mmol/L (98-107); Sodium 141 mmol/L (136-145)
[2021-07-15 07:45] VITALS: BP 126/78; PULSE 87; RESP 20; TEMP 37.3; O2SAT 97
[2021-07-15 08:24] LABS: Clarity Cloudy; Mononuclear Cells 2 %; Nucleated Cells 39270 uL (0); Polynuclear Cells 98 %
[2021-07-15 08:35] LABS: Crystals (BF) No Crystals seen
[2021-07-15] MEDS: Normal Saline Flush 10 ML SYR (08:43)
--- NOTE | 2021-07-15 09:22 | W.PM.DS.N ---
Date of service: 07/15/21 Time of Service: 09:23 DS: Diagnosis Discharge Diagnosis (1) Gout of right knee: Status: Chronic Discharge Plan Disposition Patient Disposition: HOME Condition: Improving Discharge Details Reason For Visit: Septic Bursitis Admit Date/Time: 07/14/21 22:34 Admit Provider: Benjamin Dupree Attending Provider: Benjamin Dupree Primary Care Provider: Donovan Benites Hospital Course Hospital Course: This is a 66 year old male with history of gout who presented to urgent care with a swollen painful right knee. denied any trauma or injury. reports it was consistent with gout flares. At the urgent care they reported he was diaphoretic and hypotensive so referred him to the emergency department for concern for a septic right knee. In the emergency department he was hemodynamically stable. Work up in the ED included aspiration of body fluid from the right knee. There was 49,000 cells with rare monosodium urate crystals. No bacteria was found on this fluid. He was started on vancomycin and admitted to the medicine service. In the am he was evaluated by orthopedics who drained an additional 100 cc of fluid from the knee. He was injected with depo-medrol and plan to discharge home on an oral steroid taper. He will be given a prescription for a walker to offload pressure on right knee when ambulating. There is no further follow-up with orthopedics recommended unless the symptoms do not improve. He is discharged to home with no services. He is given a steroid taper, and a prescription for oxycodone was given for severe breakthrough pain. discharge discussed with Dr Diggs. Home Meds and New Rx's Prescriptions: New prednisone 10 mg tablet See Rx Instructions .ROUTE .COMPLEX Qty: 20 RF: 0 oxycodone 5 mg tablet 5 mg PO Q6H PRNQty: 10 RF: 0 Continued albuterol sulfate 0.63 MG/3 ML solution for nebulization 0.63 inh Inhalation PRN PRNRF: 0 activated charcoal (bulk) 1 GM powder 1 g PO DAILY PRNRF: 0 Celery Seed 2 applic DAILY RF: 0 Trisalts 1 DAILY RF: 0 Urea Blend Capsules 2 cap PO BID RF: 0 albuterol sulfate [ProAir HFA] 90 mcg/actuation Hfa Aerosol Inhaler 2 puff Inhalation PRN PRNRF: 0 Breo Ellipta 100-25 mcg/dose blister with device 1 inh INHALATION DAILY RF: 0 Nature-Throid 32.5 mg tablet 1 mg PO DAILY RF: 0 Discharge Instructions Instructions: Gout (ED) Additional Instructions: taper prednisone as directed. take Prednisone 20 mg daily for 5 days, 10 mg daily for 5 days, 5 mg daily for 5 days then stop Stand Alone Forms: Nursing Discharge Form Referrals: Donovan Benites MD [Primary Care Provider] - (Call [phone] to establish a Primary Care Doctor) Activity:: Activity as Tolerated Equipment/Supplies:: Walker Diet:: As Tolerated Discharge Orders Discharge Orders: Discharge Order (Routine); Ordered 07/15/21 Ordered By: Maya Carlson Discharge Data Discharge Date/Time-TO BE ENTERED AT DEPARTURE: 07/15/21 11:50 DS: Summary Time Spent with Patient providing and/or coordinating discharge services: Less than 30 minutes Status at Discharge Functional status at discharge: independent ambulation Overall status at discharge: patient is progressing back to baseline Mental Status: mental status grossly normal Speech and Movement: speech and movement normal Mood: congruent mood Affect: normal affect Exam Const General: cooperative, comfortable and no acute distress Nutritional Appearance: average body habitus Orientation: alert, awake and oriented x3 HENMT Head: normal to inspection, normocephalic and atraumatic Mouth: oral mucosae normal Resp Effort & Inspection: normal respiratory effort and able to speak in complete sentences Cardio Rate: regular rate Rhythm: regular rhythm GI Inspection: normal to inspection Skin General skin exam: no rashes or lesions noted Extrem Right lower extremity: edema and knee Details: tenderness and swelling; no ecchymosis, no deformity and no unusual warmth Psych Mental Status: mental status grossly normal Speech and Movement: speech and movement normal Mood: congruent mood Affect: normal affect DS: Data Vitals/I&O Vitals and I&O: Vital Signs Temperature 37.3 C 07/15/21 07:45 Temperature Source Temporal Artery Scan 07/15/21 07:45 Pulse 87 07/15/21 07:45 Pulse Rhythm Regular 07/15/21 00:24 Respiratory Rate 20 07/15/21 07:45 Respiratory Effort 07/15/21 00:24 Respiratory Depth Normal 07/15/21 00:24 Respiratory Pattern Normal 07/15/21 00:24 Blood Pressure 126/78 07/15/21 07:45 Pulse Oximetry 97 07/15/21 07:45 Oxygen Delivery Method Room Air 07/15/21 07:45 Oxygen Flow Rate 0 07/15/21 07:45 Pain Level 7 07/15/21 08:44 Intake & Output 07/14/21 07/14/21 07/15/21 11:59 23:59 11:59 Intake Total 1500 / 1500 960.417 / 960.417 Output Total 850 / 850 300 / 300 Balance 650 / 650 660.417 / 660.417 Weight 95.254 kg 70.1 kg Intake: IV 1500 / 1500 960.417 / 960.417 Output: Urine 850 / 850 300 / 300 Other: Urine Color Yellow Urine Appearance Clear Voiding Methods Urinal Data Completed and Pending Labs on day of discharge: Labs from last 24 hours 07/15/21 07/15/21 07/15/21 07:20 07:20 06:10 WBC 7.83 D RBC 3.99 L Hgb 11.8 L Hct 36.9 L MCV 92.5 MCH 29.6 MCHC 32.0 RDW 14.5 H Plt Count 258 MPV 9.6 Immature Gran % 0.3 Neutrophils % 70.0 Lymphocytes % 17.9 Monocytes % 10.5 Eosinophils % 0.9 Basophils % 0.4 Nucleated RBC % 0 Absolute Neutrophils 5.48 Absolute Lymphocytes 1.40 Absolute Monocytes 0.82 H Absolute Eosinophils 0.07 Absolute Basophils 0.03 ESR VBG Lactate Sodium Potassium Chloride Carbon Dioxide Anion Gap BUN Creatinine Estimated GFR/1.73 m2 Glucose Uric Acid Calcium Total Bilirubin AST ALT Alkaline Phosphatase C-Reactive Protein Total Protein Albumin Procalcitonin Fluid Source R Knee Fluid Color Yellow Fluid Clarity Cloudy Fluid WBC 85964 Fld Polynuclear WBCs % 98 Fluid Mononuclear Cell 2 Fluid Other Cells Fluid Crystals No Crystals seen Fluid Crystal Source R Knee COVID-19 Source SARS-CoV-2 (PCR) Path Cons Comment Pending 07/15/21 07/14/21 07/14/21 06:10 23:12 23:10 WBC RBC Hgb Hct MCV MCH MCHC RDW Plt Count MPV Immature Gran % Neutrophils % Lymphocytes % Monocytes % Eosinophils % Basophils % Nucleated RBC % Absolute Neutrophils Absolute Lymphocytes Absolute Monocytes Absolute Eosinophils Absolute Basophils ESR VBG Lactate Sodium 141 Potassium 4.0 Chloride 106 Carbon Dioxide 26.4 Anion Gap 8.6 BUN 9 Creatinine 0.7 Estimated GFR/1.73 m2 >= 60.00 Glucose 106 D Uric Acid Calcium 8.4 L Total Bilirubin 1.2 H AST 12 L ALT 14 L Alkaline Phosphatase 59 C-Reactive Protein Total Protein 6.6 Albumin 3.0 L Procalcitonin Fluid Source Cancelled Fluid Color Cancelled Fluid Clarity Cancelled Fluid WBC Cancelled Fld Polynuclear WBCs % Cancelled Fluid Mononuclear Cell Cancelled Fluid Other Cells Cancelled Fluid Crystals Fluid Crystal Source COVID-19 Source Nasal/Nares SARS-CoV-2 (PCR) Negative Path Cons Comment Cancelled 07/14/21 07/14/21 07/14/21 20:55 20:46 20:06 WBC RBC Hgb Hct MCV MCH MCHC RDW Plt Count MPV Immature Gran % Neutrophils % Lymphocytes % Monocytes % Eosinophils % Basophils % Nucleated RBC % Absolute Neutrophils Absolute Lymphocytes Absolute Monocytes Absolute Eosinophils Absolute Basophils ESR VBG Lactate Sodium Potassium Chloride Carbon Dioxide Anion Gap BUN Creatinine Estimated GFR/1.73 m2 Glucose Uric Acid Calcium Total Bilirubin AST ALT Alkaline Phosphatase C-Reactive Protein Total Protein Albumin Procalcitonin Fluid Source R Knee Fluid Color Yellow Fluid Clarity Cloudy Fluid WBC 33241 Fld Polynuclear WBCs % 88 Fluid Mononuclear Cell 12 Fluid Other Cells Fluid Crystals Cancelled See Comment Fluid Crystal Source Cancelled R Knee COVID-19 Source SARS-CoV-2 (PCR) Path Cons Comment Pending 07/14/21 07/14/21 07/14/21 20:00 20:00 20:00 WBC 14.71 H RBC 4.54 Hgb 13.3 L Hct 41.6 MCV 91.6 MCH 29.3 MCHC 32.0 RDW 14.4 H Plt Count 300 MPV 9.4 Immature Gran % 0.5 Neutrophils % 84.4 Lymphocytes % 7.1 Monocytes % 7.7 Eosinophils % 0.1 Basophils % 0.2 Nucleated RBC % 0 Absolute Neutrophils 12.42 H Absolute Lymphocytes 1.04 L Absolute Monocytes 1.13 H Absolute Eosinophils 0.01 Absolute Basophils 0.03 ESR VBG Lactate 1.2 Sodium Potassium Chloride Carbon Dioxide Anion Gap BUN Creatinine Estimated GFR/1.73 m2 Glucose Uric Acid 7.2 Calcium Total Bilirubin AST ALT Alkaline Phosphatase C-Reactive Protein Total Protein Albumin Procalcitonin Fluid Source Fluid Color Fluid Clarity Fluid WBC Fld Polynuclear WBCs % Fluid Mononuclear Cell Fluid Other Cells Fluid Crystals Fluid Crystal Source COVID-19 Source SARS-CoV-2 (PCR) Path Cons Comment 07/14/21 07/14/21 07/14/21 20:00 20:00 20:00 WBC RBC Hgb Hct MCV MCH MCHC RDW Plt Count MPV Immature Gran % Neutrophils % Lymphocytes % Monocytes % Eosinophils % Basophils % Nucleated RBC % Absolute Neutrophils Absolute Lymphocytes Absolute Monocytes Absolute Eosinophils Absolute Basophils ESR 26 H VBG Lactate Sodium 138 Potassium 3.8 Chloride 100 Carbon Dioxide 30.0 Anion Gap 8.0 BUN 11 Creatinine 1.0 Estimated GFR/1.73 m2 >= 60.00 Glucose 158 H Uric Acid Calcium 9.2 Total Bilirubin 1.3 H AST 10 L ALT 17 Alkaline Phosphatase 78 C-Reactive Protein Total Protein 7.7 Albumin 3.7 Procalcitonin < 0.1 Fluid Source Fluid Color Fluid Clarity Fluid WBC Fld Polynuclear WBCs % Fluid Mononuclear Cell Fluid Other Cells Fluid Crystals Fluid Crystal Source COVID-19 Source SARS-CoV-2 (PCR) Path Cons Comment 07/14/21 20:00 WBC RBC Hgb Hct MCV MCH MCHC RDW Plt Count MPV Immature Gran % Neutrophils % Lymphocytes % Monocytes % Eosinophils % Basophils % Nucleated RBC % Absolute Neutrophils Absolute Lymphocytes Absolute Monocytes Absolute Eosinophils Absolute Basophils ESR VBG Lactate Sodium Potassium Chloride Carbon Dioxide Anion Gap BUN Creatinine Estimated GFR/1.73 m2 Glucose Uric Acid Calcium Total Bilirubin AST ALT Alkaline Phosphatase C-Reactive Protein 10.13 H Total Protein Albumin Procalcitonin Fluid Source Fluid Color Fluid Clarity Fluid WBC Fld Polynuclear WBCs % Fluid Mononuclear Cell Fluid Other Cells Fluid Crystals Fluid Crystal Source COVID-19 Source SARS-CoV-2 (PCR) Path Cons Comment 07/15/21 07:20 Synovial - Right Knee Body Fluid Culture - Pending 07/14/21 20:55 Synovial - Right Knee Body Fluid Culture - Pending 07/14/21 20:17 Blood Blood Culture - Pending 07/14/21 20:15 Blood Blood Culture - Pending Preliminary micro results at discharge 07/15/21 07:20 Body Fluid Culture - Pending Synovial - Right Knee 07/14/21 20:55 Body Fluid Culture - Pending Synovial - Right Knee 07/14/21 20:17 Blood Culture - Pending Blood 07/14/21 20:15 Blood Culture - Pending Blood PFSH Family History Mother , 93 No problems noted. Father , 85 Cancer Social History Smoking/Tobacco Use Status: Never Second Hand Exposure: Yes Smoking risk assessment performed?: Yes Alcohol Intake: current Alcohol type: beer Drug use: Current Sobriety Caregiver/Support person: No Household members: friend(s) Pets and animals: No Sexually active: Yes What is your relationship status?: living with partner Panel score (0-1 are the most socially isolated patients): 1 Do you feel safe at home: Yes Do you feel safe in your relationship?: Yes
--- NOTE | 2021-07-15 10:28 | OCONE_ITS ---
Date of service: 07/15/21 Time of Service: 07:10 History of Present Illness History of Present Illness Chief Complaint: Right Knee Swelling and Pain Narrative: Jarrod is a 66-year-old who presented to the urgent care yesterday with worsening right knee pain and swelling. At the time they thought he was diaphoretic and hypotensive so the symptoms of emergency department concern for a septic right knee. At the emergency department he was stable. However, he did have significant swelling about his right knee and pain with ambulation of motion. He has a longstanding history of gout and has been treated for gout of his knees in the past with a combination of oral steroids, other anti- inflammatories, and other medications. He feels that this is worse but very similar to previous episodes. He denies any medical issues. He takes no regular medications. He has no immunocompromisation. He does not smoke regularly. He has no issues with recurrent infections elsewhere about his body and is quite proud that he has not had antibiotics in over 40 years and is somewhat upset that he is having them now. He denies fevers or chills. He has had no significant change from yesterday except for pain and swelling about the right knee. In the emergency department yesterday, body fluid from the right knee was aspirated and sent to the lab. There was 49,000 cells with rare monosodium urate crystals. No bacteria was found on this fluid. He was started on vancomycin and admitted to the medicine service. When I saw him this morning he still has pain and swelling about the right knee. He denies fevers or chills. He also complains of some mild pain about the olecranon of both elbows, worse on the right as well as left wrist. He has a wrist brace that he wears regularly for his left wrist. He has had issues with electron bursitis on both sides, worse on the right side. He denies redness to any of these areas. Consults Consult date: 07/14/21 Requesting physician: Randall Marte Consult Reason Right knee effusion Assessment and Plan Assessment and plan (1) Gout of right knee: Status: Acute Assessment and plan: Jarrod is a 66-year-old with a history of gout, especially of his knees. He has had multiple attacks over the years. There is some initial concern about this being a septic arthritis. In the chart there is mention of a septic bursitis but the fluid is within the knee and therefore this would be a septic arthritis. The likelihood of a septic arthritis in a man without any significant comorbidities or known immunocompromisation is extremely rare. This would also be true given that there is no bacteria seen on the Gram stain, negative procalcitonin, negative lactate. Most likely this is an acute gouty flare with an elevated white blood cell count and elevated inflammatory markers. I discussed this with Jarrod and recommended that we aspirate the right knee and then inject the knee with Depo-Medrol. If this is infectious, this injection will not help and the symptoms will get worse and we would expect that cultures would grow positive, something quite aggressive and fulminant. If it is gout, the symptoms should improve. After reviewing this with him he agreed to proceed and the knee was aspirated and then injected. I would recommend at this point he is discharged with a prednisone taper and crutches or a walker to offload the right knee. I expect that the injection should provide pain relief in the next 2 to 3 days we will continue to follow the cultures. There is no need for further follow-up unless the symptoms do not improve and at that point next steps will be determined based on his symptoms and the culture results. Qualifiers: Gout etiology: idiopathic Chronicity: acute Qualified Code(s): M10.061 - Idiopathic gout, right knee (2) Effusion, right knee: Status: Acute Assessment and plan: The right knee was aspirated for 80 cc of cloudy joint fluid which was sent to the lab. See above for further plan. Review of Systems All systems reviewed & are unremarkable except as noted in HPI and below PFSH Family History Mother , 93 No problems noted. Father , 85 Cancer Social History Smoking/Tobacco Use Status: Never Second Hand Exposure: Yes Smoking risk assessment performed?: Yes Alcohol Intake: current Alcohol type: beer Drug use: Current Sobriety Caregiver/Support person: No Household members: friend(s) Pets and animals: No Sexually active: Yes What is your relationship status?: living with partner Panel score (0-1 are the most socially isolated patients): 1 Do you feel safe at home: Yes Do you feel safe in your relationship?: Yes Exam Narrative Exam Narrative: Jarrod is laying in the hospital bed. He is in no acute distress. Alert orient x3. Evaluation of the right upper extremity shows signs of a chronic bursitis about the right elbow without acute bursitis. No appearance of septic bursitis about the right elbow. There is some irregularity to the tissue in this area with some mild fluid and prominence to the bone of the olecranon. Passive range of motion of the elbow is full and without pain. Evaluation of the right knee shows a large effusion. There is no surrounding erythema. No streaking. There is no tenderness down the leg in the thigh. There is notable tenderness along medial joint line and to a lesser extent the lateral joint line. Passive range of motion causes pain. He is unable to straight leg raise due to pain. I then performed an aspiration of the right knee. This was done from the lateral position. The skin was prepped with Betadine and using an 18-gauge needle I was able to remove about 85 cc of cloudy synovial fluid. This was sent to the lab for repeat cell count, culture, crystal analysis. I then injected the right knee with 80 mg of Depo-Medrol and 8 cc of 0.25% bupivacaine. Results Last Vital Signs Temp 37.3 C 07/15/21 07:45 Pulse 87 07/15/21 07:45 Resp 20 07/15/21 07:45 BP 126/78 07/15/21 07:45 Pulse Ox 97 07/15/21 07:45 Labs Result diagrams: 07/15/21 06:10 07/15/21 06:10 Labs: Laboratory Results - last 24 hr 07/14/21 07/14/21 07/14/21 20:00 20:00 20:00 WBC RBC Hgb Hct MCV MCH MCHC RDW Plt Count MPV Immature Gran % Neutrophils % Lymphocytes % Monocytes % Eosinophils % Basophils % Nucleated RBC % Absolute Neutrophils Absolute Lymphocytes Absolute Monocytes Absolute Eosinophils Absolute Basophils ESR 26 H VBG Lactate Sodium Potassium Chloride Carbon Dioxide Anion Gap BUN Creatinine Estimated GFR/1.73 m2 Glucose Uric Acid Calcium Total Bilirubin AST ALT Alkaline Phosphatase C-Reactive Protein 10.13 H Total Protein Albumin Procalcitonin < 0.1 Fluid Source Fluid Color Fluid Clarity Fluid WBC Fld Polynuclear WBCs % Fluid Mononuclear Cell Fluid Other Cells Fluid Crystals Fluid Crystal Source COVID-19 Source SARS-CoV-2 (PCR) Path Cons Comment 07/14/21 07/14/21 07/14/21 20:00 20:00 20:00 WBC 14.71 H RBC 4.54 Hgb 13.3 L Hct 41.6 MCV 91.6 MCH 29.3 MCHC 32.0 RDW 14.4 H Plt Count 300 MPV 9.4 Immature Gran % 0.5 Neutrophils % 84.4 Lymphocytes % 7.1 Monocytes % 7.7 Eosinophils % 0.1 Basophils % 0.2 Nucleated RBC % 0 Absolute Neutrophils 12.42 H Absolute Lymphocytes 1.04 L Absolute Monocytes 1.13 H Absolute Eosinophils 0.01 Absolute Basophils 0.03 ESR VBG Lactate 1.2 Sodium 138 Potassium 3.8 Chloride 100 Carbon Dioxide 30.0 Anion Gap 8.0 BUN 11 Creatinine 1.0 Estimated GFR/1.73 m2 >= 60.00 Glucose 158 H Uric Acid Calcium 9.2 Total Bilirubin 1.3 H AST 10 L ALT 17 Alkaline Phosphatase 78 C-Reactive Protein Total Protein 7.7 Albumin 3.7 Procalcitonin Fluid Source Fluid Color Fluid Clarity Fluid WBC Fld Polynuclear WBCs % Fluid Mononuclear Cell Fluid Other Cells Fluid Crystals Fluid Crystal Source COVID-19 Source SARS-CoV-2 (PCR) Path Cons Comment 07/14/21 07/14/21 07/14/21 20:00 20:06 20:46 WBC RBC Hgb Hct MCV MCH MCHC RDW Plt Count MPV Immature Gran % Neutrophils % Lymphocytes % Monocytes % Eosinophils % Basophils % Nucleated RBC % Absolute Neutrophils Absolute Lymphocytes Absolute Monocytes Absolute Eosinophils Absolute Basophils ESR VBG Lactate Sodium Potassium Chloride Carbon Dioxide Anion Gap BUN Creatinine Estimated GFR/1.73 m2 Glucose Uric Acid 7.2 Calcium Total Bilirubin AST ALT Alkaline Phosphatase C-Reactive Protein Total Protein Albumin Procalcitonin Fluid Source Fluid Color Fluid Clarity Fluid WBC Fld Polynuclear WBCs % Fluid Mononuclear Cell Fluid Other Cells Fluid Crystals See Comment Cancelled Fluid Crystal Source R Knee Cancelled COVID-19 Source SARS-CoV-2 (PCR) Path Cons Comment 07/14/21 07/14/21 07/14/21 20:55 23:10 23:12 WBC RBC Hgb Hct MCV MCH MCHC RDW Plt Count MPV Immature Gran % Neutrophils % Lymphocytes % Monocytes % Eosinophils % Basophils % Nucleated RBC % Absolute Neutrophils Absolute Lymphocytes Absolute Monocytes Absolute Eosinophils Absolute Basophils ESR VBG Lactate Sodium Potassium Chloride Carbon Dioxide Anion Gap BUN Creatinine Estimated GFR/1.73 m2 Glucose Uric Acid Calcium Total Bilirubin AST ALT Alkaline Phosphatase C-Reactive Protein Total Protein Albumin Procalcitonin Fluid Source R Knee Cancelled Fluid Color Yellow Cancelled Fluid Clarity Cloudy Cancelled Fluid WBC 12591 Cancelled Fld Polynuclear WBCs % 88 Cancelled Fluid Mononuclear Cell 12 Cancelled Fluid Other Cells Cancelled Fluid Crystals Fluid Crystal Source COVID-19 Source Nasal/Nares SARS-CoV-2 (PCR) Negative Path Cons Comment Cancelled 07/15/21 07/15/21 07/15/21 06:10 06:10 07:20 WBC 7.83 D RBC 3.99 L Hgb 11.8 L Hct 36.9 L MCV 92.5 MCH 29.6 MCHC 32.0 RDW 14.5 H Plt Count 258 MPV 9.6 Immature Gran % 0.3 Neutrophils % 70.0 Lymphocytes % 17.9 Monocytes % 10.5 Eosinophils % 0.9 Basophils % 0.4 Nucleated RBC % 0 Absolute Neutrophils 5.48 Absolute Lymphocytes 1.40 Absolute Monocytes 0.82 H Absolute Eosinophils 0.07 Absolute Basophils 0.03 ESR VBG Lactate Sodium 141 Potassium 4.0 Chloride 106 Carbon Dioxide 26.4 Anion Gap 8.6 BUN 9 Creatinine 0.7 Estimated GFR/1.73 m2 >= 60.00 Glucose 106 D Uric Acid Calcium 8.4 L Total Bilirubin 1.2 H AST 12 L ALT 14 L Alkaline Phosphatase 59 C-Reactive Protein Total Protein 6.6 Albumin 3.0 L Procalcitonin Fluid Source R Knee Fluid Color Yellow Fluid Clarity Cloudy Fluid WBC 80228 Fld Polynuclear WBCs % 98 Fluid Mononuclear Cell 2 Fluid Other Cells Fluid Crystals Fluid Crystal Source COVID-19 Source SARS-CoV-2 (PCR) Path Cons Comment 07/15/21 07:20 WBC RBC Hgb Hct MCV MCH MCHC RDW Plt Count MPV Immature Gran % Neutrophils % Lymphocytes % Monocytes % Eosinophils % Basophils % Nucleated RBC % Absolute Neutrophils Absolute Lymphocytes Absolute Monocytes Absolute Eosinophils Absolute Basophils ESR VBG Lactate Sodium Potassium Chloride Carbon Dioxide Anion Gap BUN Creatinine Estimated GFR/1.73 m2 Glucose Uric Acid Calcium Total Bilirubin AST ALT Alkaline Phosphatase C-Reactive Protein Total Protein Albumin Procalcitonin Fluid Source Fluid Color Fluid Clarity Fluid WBC Fld Polynuclear WBCs % Fluid Mononuclear Cell Fluid Other Cells Fluid Crystals No Crystals seen Fluid Crystal Source R Knee COVID-19 Source SARS-CoV-2 (PCR) Path Cons Comment
[2021-07-15] MEDS: predniSONE 20 MG TAB 40 MG PO (10:48)
== END 2021-07-15 11:50 | disposition home or self-care (01) ==
LOC: ER 22:50 → MS 07-15 00:14
PROVIDERS: Student in an Organized Health Care Education/Training Program; Admitting Provider Family Medicine; Emergency Provider Student in an Organized Health Care Education/Training Program; PCP Family Medicine; Visit Provider Family Medicine
DX: M10.061 Idiopathic gout, right knee (principal); J45.909 Unspecified asthma, uncomplicated; F41.9 Anxiety disorder, unspecified
CPT/HCPCS: 20610; 36415; 73562; 80053; 84145; 85652; 87040; 87635; 96361; 96365; 96366; 96375; 99285; 83605; 84550; 85025; 86140; 87070; 87205; 89051; 89060; 99217; G0378; J1040; J1644; J2270; J7512

== ENCOUNTER 2021-09-30 01:40 | Outpatient (CLI) | payer MEDICAID, SELFPAY ==
[2021-09-30 09:54] LABS: Abs Immature Grans 0.01 10^3/uL (0.0-0.06); Absolute Basophil Count 0.06 10^3/uL (0.0-0.2); Absolute Eosinophil Count 0.19 10^3/uL (0.0-0.7); Absolute Lymphocyte Count 2.29 10^3/uL (1.2-3.4); Absolute Monocyte Count 0.55 10^3/uL (0.1-0.8); Absolute Neutrophil Count 3.34 10^3/uL (1.2-6.7); Basophils % 0.9; HCT 47.7 % (40.0-50.0); HGB 15.5 g/dL (13.5-17.5); Immature Grans % 0.2; Lymphocytes % 35.6; MCH 29.8 pg (27.0-33.0); MCHC 32.5 % (32.0-36.0); MCV 91.7 fL (80-95); MPV 9.2 fL (8.0-11.0); Monocytes % 8.5; Neutrophils % 51.8; Nucleated RBC 0 %; Platelet Count 356 10^3/uL (130-400); RDW-SD 43.8 fL; WBC 6.44 10^3/uL (4.4-10.8)
[2021-09-30 09:56] LABS: Bilirubin Negative (Negative); Blood Negative (Negative); Clarity Clear (Clear); Glucose Negative (Negative); Ketones Negative (Negative); Leukocyte Esterase Negative (Negative); Nitrite Negative (Negative); Specific Gravity >= 1.030 (1.005-1.025); Urobilinogen 0.2 EU/dL (Up TO 0.2); pH 5.5 (5-8)
[2021-09-30 11:34] LABS: ALT 22 U/L (16-63); AST 19 U/L (15-37); Albumin 4.2 g/dL (3.4-5.0); Alkaline Phosphatase 87 U/L (46-116); Anion Gap 11.1 mmol/L (3-11); BUN 9 mg/dL (7-18); Bilirubin, Total 0.5 mg/dL (0.2-1.0); CO2 28.9 mmol/L (21.0-32.0); Calcium 9.4 mg/dL (8.5-10.1); Chloride 101 mmol/L (98-107); FREE T4 0.79 ng/dL (0.76-1.46); Glucose 111 mg/dL (74-106); Potassium 4.4 mmol/L (3.5-5.1); Sodium 141 mmol/L (136-145); TSH 2.59 uIU/mL (0.36-3.74); Total Protein 7.9 g/dL (6.4-8.2); Uric Acid 9.3 mg/dL (3.5-7.2)
[2021-09-30 11:59] LABS: Calculated LDL 163 mg/dL (<100); Cholesterol 269 mg/dL (<200); Ferritin 196 ng/mL (26-388); HDL Cholesterol 80 mg/dL (40-60); Triglyceride 134 mg/dL (<150)
[2021-09-30 17:35] LABS: T3,Free 4.4 pg/mL (2.8-5.3)
[2021-10-01 13:38] LABS: ANA Interpretation Negative (Negative)
[2021-10-02 01:10] LABS: 25-Hydroxy D Total 46 ng/mL; 25-Hydroxy D2 <4.0 ng/mL; 25-Hydroxy D3 46 ng/mL
== END 2021-09-30 01:41 | disposition home or self-care (01) ==
LOC: LBO 01:41
PROVIDERS: Visit Provider Naturopath
DX: E03.9 Hypothyroidism, unspecified (principal); D50.9 Iron deficiency anemia, unspecified; E55.9 Vitamin D deficiency, unspecified; R42 Dizziness and giddiness; M25.511 Pain in right shoulder; J45.51 Severe persistent asthma with (acute) exacerbation; M1A.0710 Idiopathic chronic gout, right ankle and foot, without tophus (tophi)
CPT/HCPCS: 36415; 80053; 80061; 82306; 81003; 82728; 84439; 84443; 84481; 84550; 85025; 86038

== ENCOUNTER 2021-11-14 06:30 | Emergency (ER) | payer MEDICAID, SELFPAY ==
--- NOTE | 2021-11-14 06:30 | RT.EKG_ITS ---
APPROVED REPORT Exam: Resting ECG Reason for Exam: dyspnea Patient Location: E HR:108 bpm ECG Measurements Heart Rate 108 AXIS CO 167 P 82 QRSd 107 QRS -55 QT 336 T 86 QTc 451 Conclusion Sinus tachycardia...rate> 99 Left anterior fascicular block...axis(240,-40), init forces inf Consider anterior infarct...Q >30mS in V2-V5 no st depressions, no stemi
[2021-11-14 06:36] VITALS: BP 137/104; PULSE 132; RESP 14; TEMP 36.9; O2SAT 98
[2021-11-14 06:42] VITALS: RESP 19
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
[2021-11-14 07:25] LABS: BE (Venous) 4 mmol/L (-2-3); HCO3 (Venous) 29 mmol/L (23-28); O2 Sat (Venous) 53 %; TCO2 (Venous) 25 mmol/L (24-29); pCO2 (Venous) 43 mmHg (41-51); pH (Venous) 7.43 (7.31-7.41); pO2 (Venous) 27 mmHg
[2021-11-14 07:26] LABS: Abs Immature Grans 0.03 10^3/uL (0.0-0.06); Absolute Basophil Count 0.03 10^3/uL (0.0-0.2); Absolute Eosinophil Count 0.08 10^3/uL (0.0-0.7); Absolute Lymphocyte Count 1.27 10^3/uL (1.2-3.4); Absolute Neutrophil Count 8.79 10^3/uL (1.2-6.7); Basophils % 0.3; Eosinophils % 0.7; HCT 44.6 % (40.0-50.0); HGB 14.6 g/dL (13.5-17.5); Immature Grans % 0.3; Lymphocytes % 11.2; MCHC 32.7 % (32.0-36.0); MCV 91.8 fL (80-95); MPV 9.2 fL (8.0-11.0); Monocytes % 9.7; Neutrophils % 77.8; Nucleated RBC 0 %; Platelet Count 367 10^3/uL (130-400); RBC 4.86 10^6/uL (4.36-5.78); RDW 11.7 % (11.8-14.1); RDW-SD 39.8 fL
[2021-11-14 07:27] LABS: Carboxyhemoglobin 1.3 %
[2021-11-14] MEDS: Normal Saline 1,000 ML 1000 ML IV (07:34)
[2021-11-14] MEDS: methylPREDNISolone SUCC 125 MG VIAL IVP (07:34)
[2021-11-14] MEDS: Ketorolac 15 MG/ML VIAL IVP (07:35)
[2021-11-14 07:53] LABS: ALT 20 U/L (16-63); AST 15 U/L (15-37); Albumin 3.8 g/dL (3.4-5.0); Alkaline Phosphatase 89 U/L (46-116); Anion Gap 9.5 mmol/L (3-11); BUN 11 mg/dL (7-18); Bilirubin, Total 0.7 mg/dL (0.2-1.0); CO2 27.5 mmol/L (21.0-32.0); CREATININE 1.1 mg/dL (0.70-1.30); Calcium 9.7 mg/dL (8.5-10.1); Chloride 102 mmol/L (98-107); Glucose 149 mg/dL (74-106); Magnesium 2.4 mg/dL (1.8-2.4); NT-proBNP 142 pg/mL (<300); Potassium 4.1 mmol/L (3.5-5.1); Sodium 139 mmol/L (136-145); TSH (W/Ref FT4) 2.03 uIU/mL (0.36-3.74); Total Protein 8.2 g/dL (6.4-8.2); Troponin I < 50 ng/L (<or=60)
[2021-11-14 08:53] VITALS: BP 141/98; PULSE 99; RESP 18; O2SAT 96
== END 2021-11-14 08:50 | disposition home or self-care (01) ==
PROVIDERS: Emergency Medicine; Emergency Provider Emergency Medicine; PCP Naturopath
DX: M10.032 Idiopathic gout, left wrist (principal); R06.02 Shortness of breath
CPT/HCPCS: 36415; 80053; 82375; 82805; 87635; 93005; 96361; 96374; 96375; 99284; 83735; 83880; 84443; 84484; 85025; 93010; J1885; J2930

== ENCOUNTER 2021-11-21 18:13 | Emergency (ER) | payer MEDICAID, SELFPAY ==
[2021-11-21 18:14] VITALS: BP 152/99; PULSE 127; RESP 16; O2SAT 98
[2021-11-21 18:42] VITALS: RESP 16
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
[2021-11-21 19:04] VITALS: RESP 4; O2SAT 98
[2021-11-21] MEDS: Albuterol/Ipratropium 3 ML UPD VIAL 9 ML UPD (19:04)
[2021-11-21] MEDS: Dexamethasone 4 MG TAB 10 MG PO (19:04)
[2021-11-21 20:05] VITALS: BP 140/95; PULSE 91; O2SAT 98
== END 2021-11-21 20:12 | disposition home or self-care (01) ==
PROVIDERS: Emergency Provider Emergency Medicine; PCP Naturopath
DX: R06.2 Wheezing (principal); Z77.098 Contact with and (suspected) exposure to other hazardous, chiefly nonmedicinal, chemicals
CPT/HCPCS: 94640; 99283; J7620; J8540

== ENCOUNTER 2022-05-06 05:19 | Outpatient (CLI) | payer MEDICAID, SELFPAY ==
[2022-05-06 12:02] LABS: Abs Immature Grans 0.01 10^3/uL (0.0-0.06); Absolute Basophil Count 0.04 10^3/uL (0.0-0.2); Absolute Eosinophil Count 0.38 10^3/uL (0.0-0.7); Absolute Lymphocyte Count 2.01 10^3/uL (1.2-3.4); Absolute Monocyte Count 0.55 10^3/uL (0.1-0.8); Absolute Neutrophil Count 3.39 10^3/uL (1.2-6.7); Basophils % 0.6; HCT 42.9 % (40.0-50.0); HGB 14.3 g/dL (13.5-17.5); Immature Grans % 0.2; Lymphocytes % 31.5; MCH 29.5 pg (27.0-33.0); MCHC 33.3 % (32.0-36.0); MCV 89 fL (80-95); MPV 9.5 fL (8.0-11.0); Monocytes % 8.6; Neutrophils % 53.1; Platelet Count 348 10^3/uL (130-400); RBC 4.84 10^6/uL (4.36-5.78); RDW 12.8 % (11.8-14.1); RDW-SD 41.8 fL; WBC 6.38 10^3/uL (4.4-10.8)
[2022-05-06 12:22] LABS: Hemoglobin A1C 5.9 % (<5.7)
[2022-05-06 12:53] LABS: Total Iron Binding Capacity 257 ug/dL (250-450)
[2022-05-06 13:17] LABS: Vitamin D 25 Total 62.6 ng/mL (30-100)
[2022-05-06 13:25] LABS: ALT 25 U/L (16-63); AST 20 U/L (15-37); Albumin 3.7 g/dL (3.4-5.0); Alkaline Phosphatase 67 U/L (46-116); Anion Gap 12.7 mmol/L (3-11); BUN 10 mg/dL (7-18); Bilirubin, Total 0.6 mg/dL (0.2-1.0); CO2 25.3 mmol/L (21.0-32.0); Calcium 9.2 mg/dL (8.5-10.1); Chloride 102 mmol/L (98-107); Estimated GFR 83.52 (mL/min/1.73m2); Ferritin 282 ng/mL (26-388); Folate 14.6 ng/mL (8.6-20.0); Glucose 124 mg/dL (74-106); Sodium 140 mmol/L (136-145); TSH 3.25 uIU/mL (0.36-3.74); Total Protein 7.9 g/dL (6.4-8.2); Vitamin B12 477 pg/mL (193-986)
[2022-05-06 13:53] LABS: Uric Acid 7.5 mg/dL (3.5-7.2)
[2022-05-06 20:23] LABS: Iron 117 ug/dL (65-175)
[2022-05-06 22:02] LABS: T3,Free 3.8 pg/mL (2.8-5.3)
== END 2022-05-06 05:20 | disposition home or self-care (01) ==
LOC: LBO 05:20
PROVIDERS: Visit Provider Naturopath
DX: E03.9 Hypothyroidism, unspecified (principal); R53.83 Other fatigue; E55.9 Vitamin D deficiency, unspecified; R73.9 Hyperglycemia, unspecified; Z77.018 Contact with and (suspected) exposure to other hazardous metals
CPT/HCPCS: 36415; 80053; 82306; 82607; 82728; 82746; 83036; 83540; 83550; 84439; 84443; 84481; 84550; 85025

== ENCOUNTER 2022-05-11 17:23 | Outpatient (REF) | payer MEDICAID, SELFPAY ==
[2022-05-12 23:13] LABS: Arsenic Concentration w/Reflex 3 mcg/L; Arsenic, 24 Hr, U 7 mcg/24 h (<35); Cadmium, 24 Hr, U <0.5 mcg/24 h (<0.7); Lead, 24 Hr, U <1 mcg/24 h (<2); Mercury, 24 Hr, U <2 mcg/24 h (<2); Total Volume 2600 mL
== END 2022-05-11 17:24 | disposition home or self-care (01) ==
LOC: LBN 17:23
PROVIDERS: Visit Provider Naturopath
DX: Z77.018 Contact with and (suspected) exposure to other hazardous metals (principal); R53.83 Other fatigue
CPT/HCPCS: 82175; 82300; 83655; 83825

== ENCOUNTER 2022-05-31 03:19 | Outpatient (CLI) | payer MEDICARE, MEDICAID, SELFPAY ==
[2022-05-31] MEDS: Albuterol HFA 18 GM 200 PUFF INH IH (11:22)
[2022-05-31] MEDS: Inhaler, Assist Device 1 EACH MC (11:23)
--- NOTE | 2022-05-31 14:46 | W.PFT ---
Date of service: 05/31/22 Time of Service: 10:04 Pulmonary Function Test Result Requesting Provider Ry Indications: Asthma Interpretation Spirometry: There is mild airflow limitation. There is no significant bronchodilator response. Lung Volumes: Lung volumes are normal Diffusion Capacity: Diffusion is normal Airway Pressure: Normal airway resistance Impression Mild airflow obstruction. Clinical Correlation therefore is recommended.
== END 2022-05-31 03:20 | disposition home or self-care (01) ==
LOC: RT 03:19
PROVIDERS: Visit Provider Student in an Organized Health Care Education/Training Program
DX: R94.2 Abnormal results of pulmonary function studies (principal); J45.909 Unspecified asthma, uncomplicated
CPT/HCPCS: 94060; 94726; 94729

== ENCOUNTER 2022-09-20 10:46 | Outpatient (CLI) | payer MEDICARE, MEDICAID, SELFPAY ==
--- NOTE | 2022-09-20 10:15 | DI.RAD_ITS ---
Exam(s) XR HIP RT COMPLETE AP PELVIS EXAM: XR HIP RT COMPLETE AP PELVIS CLINICAL HISTORY: eval R hip pain. TECHNIQUE: 2D digital imaging was performed of the right hip. Three images were obtained. AP pelvis and lateral right hip views were obtained. COMPARISON: No exams were available for comparison FINDINGS: BONES: No acute fracture is present. No bony destructive lesion is seen. JOINTS: No dislocation present. There are degenerative changes seen in the right hip with joint space narrowing and periarticular spurring. There is a lucency seen in the superior aspect of the femoral head. The findings raise a question of associated avascular necrosis. In the left hip, there is mi ld joint space narrowing and acetabular spurring present. SOFT TISSUE: Normal. IMPRESSION: 1. Degenerative changes in the right hip which are moderate. Findings suspicious for underlying avas cular necrosis. 2. Mild osteoarthritis of the left hip. DATA REPOSITORY: RADIATION DOSE DELIVERED:
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
== END 2022-09-20 10:47 | disposition home or self-care (01) ==
LOC: DIORS 10:46
PROVIDERS: Visit Provider Student in an Organized Health Care Education/Training Program
DX: M70.61 Trochanteric bursitis, right hip (principal); M87.051 Idiopathic aseptic necrosis of right femur; M17.32 Unilateral post-traumatic osteoarthritis, left knee
CPT/HCPCS: 20610; 99214; 73502; 73564; J1040

== ENCOUNTER → 2022-11-04 10:34 | Outpatient (BNVA) | payer MEDICARE, MEDICAID, SELFPAY | PROVIDERS: Visit Provider Student in an Organized Health Care Education/Training Program | DX: M87.051 Idiopathic aseptic necrosis of right femur (principal); M70.61 Trochanteric bursitis, right hip; M10.9 Gout, unspecified | CPT/HCPCS: 99213 ==

== ENCOUNTER → 2024-04-04 08:59 | Outpatient (BNVA) | payer MEDICARE, MEDICAID, SELFPAY | PROVIDERS: Visit Provider Internal Medicine Critical Care Medicine | DX: J45.20 Mild intermittent asthma, uncomplicated (principal) | CPT/HCPCS: 99213 ==

== ENCOUNTER 2024-05-04 01:22 | Outpatient (CLI) | payer MEDICARE, MEDICAID, SELFPAY ==
[2024-05-04 11:22] LABS: Vitamin B12 352 pg/mL (193-986); Vitamin D 25 Total 42.3 ng/mL (30-100)
[2024-05-04 11:24] LABS: Folate > 20.0 ng/mL (8.6-20.0)
[2024-05-04 19:27] LABS: Homocysteine 15.2 umol/L (5.0-13.9)
== END 2024-05-04 01:23 | disposition home or self-care (01) ==
LOC: LBO 01:22
PROVIDERS: Visit Provider Naturopath
DX: E55.9 Vitamin D deficiency, unspecified (principal); E72.11 Homocystinuria
CPT/HCPCS: 36415; 82306; 83090; 82607; 82746

== ENCOUNTER 2024-09-11 09:15 | Emergency (ER) | payer MEDICARE, MEDICAID, SELFPAY ==
[2024-09-11] VITALS (24 sets, daily range): BP systolic 120–161; BP diastolic 76–89; PULSE 76–128; RESP 8–21; TEMP 36.8–36.9; O2SAT 94–100
--- NOTE | 2024-09-11 09:15 | DI.RAD_ITS ---
Exam(s) XR CHEST 2V PA LATERAL EXAM: XR CHEST 2V PA LATERAL CLINICAL HISTORY: Chest pain TECHNIQUE: 2D digital imaging was performed of the chest. Two images were obtained. PA and lateral views were obtained. COMPARISON: CR XR CHEST 2V PA LATERAL from 10/06/2018 FINDINGS: MEDIASTINUM: Normal. HEART: Normal. PULMONARY VASCULATURE: Normal. LUNGS: Clear. PLEURAL SPACE: No pleural effusion or pneumothorax. BONE:Within normal limits for the patient's age. OTHER FINDINGS:Normal. IMPRESSION: No acute pulmonary findings. DATA REPOSITORY: RADIATION DOSE DELIVERED:
--- NOTE | 2024-09-11 09:15 | RT.EKG_ITS ---
APPROVED REPORT Exam: Resting ECG Reason for Exam: Chest pain Patient Location: E HR:112 bpm ECG Measurements Heart Rate 112 AXIS OH 150 P 89 QRSd 99 QRS -70 QT 326 T 85 QTc 445 Conclusion Sinus tachycardia...rate> 99 Left anterior fascicular block...axis(240,-40), init forces inf Anteroseptal infarct, old...Q >40mS, V1-V2 No STEMI
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
--- NOTE | 2024-09-11 09:30 | DI.RAD_ITS ---
Exam(s) XR KNEE RT 3V AP,LAT,KALINA EXAM: XR KNEE RT 3V AP,LAT,KALINA CLINICAL HISTORY: Right knee pain. TECHNIQUE: 2D digital imaging was performed of the right knee. Three views obtained. AP, lateral an d PA tunnel views were obtained. COMPARISON: CR,XR XR KNEE RT 3V AP,LAT,KALINA from 07/14/2021 CR XR CHEST 2V PA LATERAL from 09/11/2024 FINDINGS: BONES: No acute fracture is present. No bony destructive lesion is seen. The bones are osteopenic. JOINTS: Degenerative changes are seen in the knee predominantly involving the patellofemoral joint. There is a moderate size joint effusion. SOFT TISSUE: Normal. IMPRESSION: 1. No definite acute fracture or dislocation. 2. Moderate joint effusion. 3. Mild osteopenia. 4. Please correlate with the patient's clinical history. Occult fracture or infection may be conside red. Follow-up as clinically appropriate. DATA REPOSITORY: RADIATION DOSE DELIVERED:
[2024-09-11 10:05] LABS: Abs Immature Grans 0.05 10^3/uL (0.0-0.06); Absolute Eosinophil Count 0.21 10^3/uL (0.0-0.7); Absolute Lymphocyte Count 1.44 10^3/uL (1.2-3.4); Basophils % 0.4 %; Eosinophils % 1.6 %; HCT 44.8 % (40.0-50.0); HGB 14.7 g/dL (13.5-17.5); Immature Grans % 0.4 %; Lymphocytes % 10.8 %; MCH 30.2 pg (27.0-33.0); MCHC 32.8 % (32.0-36.0); MCV 92 fL (80-95); MPV 8.9 fL (8.0-11.0); Neutrophils % 79.8 %; Platelet Count 437 10^3/uL (130-400); RBC 4.87 10^6/uL (4.36-5.78); RDW 13.2 % (11.8-14.1); RDW-SD 44.6 fL; WBC 13.37 10^3/uL (4.4-10.8)
[2024-09-11 10:07] LABS: Absolute Basophil Count 0.05 10^3/uL (0.0-0.2); Absolute Monocyte Count 0.94 10^3/uL (0.1-0.8); Absolute Neutrophil Count 10.67 10^3/uL (1.2-6.7)
[2024-09-11] MEDS: MORPHine 4 MG/ML SYR 2 MG IVP (10:19)
[2024-09-11 10:23] LABS: Anion Gap 8.8 mmol/L (3-11); BUN 11 mg/dL (7-18); CO2 28.2 mmol/L (21.0-32.0); CREATININE 1.2 mg/dL (0.70-1.30); Calcium 10.1 mg/dL (8.5-10.1); Chloride 102 mmol/L (98-107); Estimated GFR 66.28 (mL/min/1.73m2); Glucose 158 mg/dL (74-106); Lipase 181 U/L (<78); Sodium 139 mmol/L (136-145); Troponin I 4 ng/L (<or=76)
[2024-09-11 10:43] LABS: D-Dimer 2709 ng/mlFEU (<500)
[2024-09-11 11:18] LABS: Troponin I 4 ng/L (<or=76)
[2024-09-11] MEDS: MORPHine 4 MG/ML SYR IVP (12:07)
[2024-09-11 13:11] LABS: Crystals (BF) No Crystals seen
[2024-09-11 13:18] LABS: Clarity Cloudy; Nucleated Cells 15650 uL (0)
[2024-09-11 13:21] LABS: Mononuclear Cells 16 %; Polynuclear Cells 84 %
[2024-09-11] MEDS: predniSONE 20 MG TAB 60 MG PO (13:58)
== END 2024-09-11 14:15 | disposition home or self-care (01) ==
PROVIDERS: Emergency Provider Emergency Medicine
DX: M25.561 Pain in right knee (principal); M25.461 Effusion, right knee; R00.0 Tachycardia, unspecified; I44.4 Left anterior fascicular block; J45.909 Unspecified asthma, uncomplicated
CPT/HCPCS: 62270; 73562; 76942; 80048; 83690; 93005; 99285; 71046; 83735; 84484; 85025; 85379; 87070; 87205; 89051; 89060; 93010; J2004; J2270; J7512

== ENCOUNTER → 2025-04-30 10:54 | Outpatient (BNVA) | payer MEDICARE, MEDICAID, SELFPAY | PROVIDERS: Visit Provider Internal Medicine Pulmonary Disease | DX: J45.40 Moderate persistent asthma, uncomplicated (principal); G47.33 Obstructive sleep apnea (adult) (pediatric) | CPT/HCPCS: 99214 ==

== ENCOUNTER 2025-07-29 03:30 | Outpatient (CLI) | payer MEDICARE, MEDICAID, SELFPAY ==
[2025-07-29] MEDS: Levalbuterol HFA 15 GM INH 4 PUFF IH (11:15)
[2025-07-29] MEDS: Inhaler, Assist Device 1 EACH MC (11:15)
--- NOTE | 2025-07-29 14:51 | W.PFT ---
Date of service: 07/29/25 Time of Service: 10:03 Pulmonary Function Test Result Indications: Asthma Impression 1. Good patient effort was noted. ATS standards for reproducibility were met. 2. Spirometry showed mild obstructive lung disease with an FEV1 of 93% (3.01 L) 3. Following the administration of a bronchodilator there was not a significant response
== END 2025-07-29 03:31 | disposition home or self-care (01) ==
LOC: RT 03:30
PROVIDERS: Visit Provider Internal Medicine Pulmonary Disease
DX: J45.20 Mild intermittent asthma, uncomplicated (principal); J44.9 Chronic obstructive pulmonary disease, unspecified
CPT/HCPCS: 94060

== ENCOUNTER → 2025-08-13 11:34 | Outpatient (BNVA) | payer MEDICARE, MEDICAID, SELFPAY | PROVIDERS: Visit Provider Internal Medicine Pulmonary Disease | DX: J44.9 Chronic obstructive pulmonary disease, unspecified (principal); G47.33 Obstructive sleep apnea (adult) (pediatric) | CPT/HCPCS: 99214 ==